=== PATIENT | female | born 1950 | race Caucasian/White ===

== ENCOUNTER → 2017-03-05 | Outpatient (CLI) | payer MEDICARE, OTHER ==
[2017-03-05 08:24] LABS: ABSOLUTE EOSINOPHILS # (AUTO) 0.1 10^3/uL (0.0-0.6); ABSOLUTE LYMPHOCYTES (AUTO) 1.7 10^3/uL (0.5-4.7); ABSOLUTE MONOCYTES (AUTO) 0.7 10^3/uL (0.1-1.4); ABSOLUTE NEUT (AUTO) 4.8 10^3/uL (1.7-8.2); BASOPHILS % (AUTO) 0.6 % (0-2); EOSINOPHILS % (AUTO) 1.9 % (0-6); HEMATOCRIT 36.5 % (36.0-47.0); HEMOGLOBIN 12.3 g/dL (12.0-15.5); HGB HCT DIFFERENCE 0.4; LYMPHOCYTES % (AUTO) 23.6 % (13-45); MEAN CORPUSCULAR HEMOGLOBIN 31.3 pg (27.0-33.4); MEAN CORPUSCULAR HGB CONC 33.8 g/dL (32.0-36.0); MEAN CORPUSCULAR VOLUME 93 fl (80-97); MONOCYTES % (AUTO) 9.4 % (3-13); RED BLOOD COUNT 3.94 10^6/uL (3.72-5.28); RED CELL DISTRIBUTION WIDTH 13.5 % (11.5-14.0); SEGMENTED NEUTROPHILS % (AUTO) 64.5 % (42-78); WHITE BLOOD COUNT 7.4 10^3/uL (4.0-10.5)
[2017-03-05 08:48] LABS: ALANINE AMINOTRANSFERASE 20 U/L (9-52); ALBUMIN 4.5 g/dL (3.5-5.0); ALKALINE PHOSPHATASE 70 U/L (38-126); ANION GAP 12 (5-19); ASPARTATE AMINO TRANSFERASE 17 U/L (14-36); BILIRUBIN,DIRECT 0.3 mg/dL (0.0-0.4); BILIRUBIN,TOTAL 0.9 mg/dL (0.2-1.3); BLOOD UREA NITROGEN 12 mg/dL (7-20); CALCIUM 10.1 mg/dL (8.4-10.2); CARBON DIOXIDE 26 mmol/L (22-30); CHLORIDE 107 mmol/L (98-107); CREATININE RESULT 0.95 mg/dL (0.52-1.25); GLUCOSE 101 mg/dL (75-110); LITHIUM 0.9 mEq/L (0.6-1.2); POTASSIUM 4.2 mmol/L (3.6-5.0); SODIUM 145.1 mmol/L (137-145); TOTAL PROTEIN 7.1 g/dL (6.3-8.2)
[2017-03-05 09:25] LABS: THYROID STIMULATING HORMONE 5.74 uIU/mL (0.47-4.68)
== END ==
LOC: OD 07:19
PROVIDERS: ATTEND Physician Assistant
DX: F31.73 Bipolar disorder, in partial remission, most recent episode manic (principal); Z79.899 Other long term (current) drug therapy
CPT/HCPCS: 36415; 80053; 80178; 84439; 84443; 85025

== ENCOUNTER 2018-01-29 16:09 | Emergency (ER) | payer MEDICARE, OTHER ==
--- NOTE | 2018-01-29 16:39 | ER Document Report ---
HPI - HPI Pain Level: 1 Notes: Patient is a 67-year-old female with a previous history of T&A who presents to the ED complaining of sensation of foreign body to the right side of her throat 4 days after eating chicken. Patient is not aware of any obvious bone or sharp object that she swallowed. Patient states that she has no pain associated , but does have the sensation of foreign body. Patient states that she is still eating soft foods, but has been concerned about eating hard solids. Patient states that she is still drinking without any difficulties. She is urinating normally and having normal bowel movements. Patient states that she has otherwise felt well. She has no other significant past medical history aside from bipolar. Denies any drug allergies. Denies any headache, fever, head injury, neck pain, drooling, hoarseness, trouble swallowing, URI, sore throat, chest pain, palpitations, syncope, cough, shortness of breath, wheeze, dyspnea, abdominal pain, nausea/vomiting/diarrhea, urinary retention, dysuria, hematuria, numbness/tingling, or rash. - ROS Systems Reviewed and Negative: Yes All other systems reviewed and negative - REPRODUCTIVE Reproductive: DENIES: : Past Medical History - Social History Smoking Status: Never Smoker Family History: Reviewed & Not Pertinent Psychiatric Medical History: Reports: Hx Bipolar Disorder - Immunizations Hx Diphtheria, Pertussis, Tetanus Vaccination: Yes Vertical Provider Document - CONSTITUTIONAL Agree With Documented VS: Yes Notes: PHYSICAL EXAMINATION: GENERAL: Well-appearing, well-nourished and in no acute distress. A&Ox4. Answers questions appropriately. Moves comfortably w/o notable distress HEAD: Atraumatic, normocephalic. EYES: Pupils equal round and reactive to light, extraocular movements intact, sclera anicteric, conjunctiva are normal. ENT: EAC clear b/l. TM's intact b/l without erythema, fluid, or perforation. Nares patent and with clear discharge. oropharynx w/o erythema without exudates. Tonsils absent. No palatine shift. Uvula midline. No tongue protrusion. No drooling, hoarseness, or airway compromise. Moist mucous membranes. No sinus tenderness. NECK: Normal range of motion, supple without lymphadenopathy. No rigidity/ meningismus. LUNGS: Breath sounds clear to auscultation bilaterally and equal. No wheezes rales or rhonchi. No retractions HEART: Regular rate and rhythm without murmurs, rubs, gallops. ABDOMEN: Soft, nontender, nondistended abdomen. No guarding, no rebound. No masses appreciated. Normal bowel sounds present. No CVA tenderness bilaterally. NEUROLOGICAL: Normal speech, normal gait. Normal sensory, motor exams PSYCH: Normal mood, normal affect. SKIN: Warm, Dry, normal turgor, no rashes or lesions noted. - INFECTION CONTROL TRAVEL OUTSIDE OF THE [place] IN LAST 30 DAYS: No Course - Re-evaluation Re-evalutation: 01/29/18 16:[address] Morse. We will obtain a CT scan and CXR at this time to further investigate. Pt is able to swallow and tolerate PO otherwise w/o any difficulties. 01/29/18 18:[address] soft tissue neck w/o: IMPRESSION: Tiny radiopaque density on the right as noted above in the soft tissues adjacent to the superior portion of the thyroid cartilage most likely representing a vascular calcification however this could conceivably represent a radiopaque foreign body. No other evidence for radiopaque foreign body is seen. Other findings as noted above I did call and speak with Dr. Martinez who will come evalute the patient as he is currently in-house. Pt is in agreement at this time with plan. 01/29/18 18:32 Will move patient to bed 19 for endoscopic procedure by Dr. Martinez. 01/29/18 19:41 Patient is an afebrile, well-hydrated, 67-year-old female who presents to the ED with a possible "tiny" radiopaque density on the right side of the neck superior portion of the thyroid cartilage versus vascular calcification. There was no foreign body on endoscopy, but Dr. Martinez states that there was inflamed tissue. Vitals are acceptable. PE is otherwise unremarkable. Patient is able to tolerate p.o. without any difficulties. Low suspicion for any meningitis, sepsis, peritonsillar/pharyngeal abscess, airway/respiratory compromise, Mo' s, retained foreign body, or other emergent systemic condition at this time. Patient is aware this condition can change from initial presentation and she needs to monitor symptoms closely. Conservative measures otherwise for symptoms. Recheck with your PCM in 3-5 days. Return to the ED with any worsening/concerning symptoms otherwise as reviewed in discharge. Patient is in agreement. Pt to be discharged in another 27minutes per Dr. Martinez w/o restrictions. - Vital Signs Vital signs: Temp Pulse Resp BP Pulse Ox 99.3 F 73 18 166/77 H 100 01/29/18 16:14 01/29/18 16:14 01/29/18 16:14 01/29/18 16:14 01/29/18 16:14 Discharge - Discharge Clinical Impression: Sensation of foreign body in esophagus Condition: Stable Disposition: HOME, SELF-CARE Additional Instructions: Maintain adequate fluid and food intake tylenol if needed Monitor for any worsening symptoms Recheck with your PCM in 3-5 days Return to the ED with any worsening symptoms and/or development of fever, headache, sore throat, trouble swallowing, drooling, hoarseness, chest pain, palpitations, syncope, wheezing, shortness of breath, trouble breathing, abdominal pain, n/v/d, blood in stool/urine, weakness, or other worsening symptoms that are concerning to you. Forms: Elevated Blood Pressure Referrals: DEVORA MARTINEZ MD [ACTIVE STAFF] - Follow up as needed
--- NOTE | 2018-01-29 17:08 | RADIOLOGY REPORT (SQ) ---
EXAM DESCRIPTION: CHEST PA/LAT COMPLETED DATE/TIME: 01/29/2018 5:01 pm REASON FOR STUDY: sensation of foreign body, neck COMPARISON: None. EXAM PARAMETERS: NUMBER OF VIEWS: two views TECHNIQUE: Digital Frontal and Lateral radiographic views of the chest acquired. RADIATION DOSE: NA LIMITATIONS: none FINDINGS: LUNGS AND PLEURA: No opacities, masses or pneumothorax. No pleural effusion. MEDIASTINUM AND HILAR STRUCTURES: No masses or contour abnormalities. HEART AND VASCULAR STRUCTURES: Heart normal size. No evidence for failure. BONES: No acute findings. HARDWARE: None in the chest. OTHER: No other significant finding. IMPRESSION: NO SIGNIFICANT RADIOGRAPHIC FINDING IN THE CHEST. TECHNICAL DOCUMENTATION: JOB ID: [id number] [employer]- All Rights Reserved Reading location - IP/workstation name: [email or web address]
--- NOTE | 2018-01-29 17:27 | RADIOLOGY REPORT (SQ) ---
EXAM DESCRIPTION: CT SOFT TISSUE NECK WITHOUT COMPLETED DATE/TIME: 01/29/2018 5:00 pm REASON FOR STUDY: sensation of foreign body, right side COMPARISON: None. TECHNIQUE: Noncontrast scanning from skull base through lung apices with review of bone, soft tissue and lung windows. Reconstructed coronal and sagittal MPR images reviewed. All images stored on PAC S. All CT scanners at this facility use dose modulation, iterative reconstruction, and/or weight based d osing when appropriate to reduce radiation dose to as low as reasonably achievable (ALARA). [facility]: Dose Right [facility]: CareDose [facility]: Dose Right [facility]: Teradose 4D [facility]: [employer] RADIATION DOSE: CT Rad equipment meets quality standard of care and radiation dose reduction techniq ues were employed. CTDIvol: 9.7 mGy. DLP: 334 mGy-cm. mGy. LIMITATIONS: Study is limited somewhat due to artifact related to dental hardware. FINDINGS: SKULL BASE: Intact. MAJOR SALIVARY GLANDS: No solid or cystic masses. No inflammatory changes. LYMPHADENOPATHY: No adenopathy. MUCOSAL MASSES OR ASYMMETRY: No mucosal masses or asymmetry. LARYNX/CORDS: No abnormal findings. LUNG APICES: Clear. BONES: Degenerative changes are identified in the cervical spine THYROID: Normal size. No masses. PARANASAL SINUSES: Clear. OTHER: On images number 56 through 58 of the axial images a tiny radiopaque density is identified in the soft tissues adjacent to the superior portion of the thyroid cartilage on the right which most li bladimir represents a vascular calcification however this could conceivably represent a radiopaque foreig n body. IMPRESSION: Tiny radiopaque density on the right as noted above in the soft tissues adjacent to the superior portion of the thyroid cartilage most likely representing a vascular calcification however t his could conceivably represent a radiopaque foreign body. No other evidence for radiopaque foreign body is seen. Other findings as noted above TECHNICAL DOCUMENTATION: JOB ID: [id number] Quality ID # [id number]: Final reports with documentation of one or more dose reduction techniques (e.g., Au tomated exposure control, adjustment of the mA and/or kV according to patient size, use of iterative reconstruction technique) 2010 [employer]- All Rights Reserved Reading location - IP/workstation name: [email or web address]
[2018-01-29] MEDS ORDERED: ONDANSETRON HCL INJ/PF 4 MG/2 ML SDV ONE (19:02)
[2018-01-29] MEDS ORDERED: DIPHENHYDRAMINE HCL 50 MG/ML VIAL ONE (19:02)
[2018-01-29] MEDS ORDERED: NALOXONE HCL INJ/PF 0.4 MG/1 ML SDV ONE (19:02)
[2018-01-29] MEDS ORDERED: FENTANYL CITRATE INJ/PF 100 MCG/2 ML AMPUL ONE (19:03)
[2018-01-29] MEDS ORDERED: FLUMAZENIL INJ 0.5 MG/5 ML VIAL ONE (19:03)
[2018-01-29] MEDS ORDERED: MIDAZOLAM 2 MG/2 ML INJ ONE (19:03)
[2018-01-29] MEDS ORDERED: EPINEPHRINE INJ 1 MG/10 ML DISP.SYRIN ONE (19:03)
[2018-01-29] MEDS ORDERED: GLUCAGON,HUMAN RECOMB 1 MG INJ ONE (19:04)
[2018-01-29] MEDS: MIDAZOLAM 2 MG/2 ML INJ ONE ×2 (19:25→19:30)
--- NOTE | 2018-01-29 19:46 | PDOC CONSULTATION ---
Consultation Consult Date: 01/29/18 Attending physician:: DEVORA MARTINEZ Consult reason:: Possible foreign body sensation , abnormal CT scan History of Present Illness History of Present Illness: DANDY RODRÍGUEZ is a 67 year old female patient presented to the ED was eating some chicken several days ago and had possible impaction she tried to directly remove the piece of chicken and apparently was able to retrieve however she denies eating or swallowing any bones she still appears to have a foreign body sensation on the right side of her throat she was able to tolerate her secretions she is able to converse in full sentences patient had a CT scan done in the area. Radiology confirms a radioopaque substance in the area, ? possible vascular calcification but they would not rule out presence of a retained foreign body in the right vallaculae she is willing to have an EGD done Past Medical History Psychiatric Medical History: Reports: Bipolar Disorder Social History Smoking Status: Never Smoker Family History Family History: Reviewed & Not Pertinent Parental Family History Reviewed: Yes Children Family History Reviewed: Unknown Sibling(s) Family History Reviewed.: Unknown Medication/Allergy Home Medications: [place] Carbonate 150 mg PO DAILY 06/27/12 Allergies/Adverse Reactions: No Known Allergies Allergy (Unverified 06/27/12 08:26) Review of Systems Constitutional: ABSENT: fever(s), headache(s) Eyes: ABSENT: visual disturbances Ears: ABSENT: hearing changes Nose, Mouth, and Throat: PRESENT: sore throat. ABSENT: mouth pain Cardiovascular: ABSENT: chest pain, edema, orthropnea, palpitations Respiratory: ABSENT: dyspnea, hemoptysis Gastrointestinal: ABSENT: diarrhea, dysphagia, melena Genitourinary: ABSENT: dysuria, hematuria Musculoskeletal: ABSENT: deformity, joint swelling Integumentary: ABSENT: pruritus Neurological: ABSENT: syncope, tingling, tremor(s), vertigo Endocrine: ABSENT: polydipsia, polyphagia, polyuria Hematologic/Lymphatic: ABSENT: easy bruising Physical Exam Vital Signs: Temp Pulse Resp BP Pulse Ox 99.3 F 73 18 166/77 H 100 01/29/18 16:14 01/29/18 16:14 01/29/18 16:14 01/29/18 16:14 01/29/18 16:14 Intake & Output 01/28/18 01/29/18 01/30/18 06:59 06:59 06:59 Weight 74 kg General appearance: PRESENT: well-developed, well-nourished Head exam: PRESENT: atraumatic, normocephalic Eye exam: PRESENT: EOMI, PERRLA. ABSENT: nystagmus, periorbital swelling, scleral icterus Mouth exam: PRESENT: moist, neck supple Throat exam: ABSENT: tonsillar exudate, tonsillogmegaly Neck exam: ABSENT: meningismus, tenderness, thyromegaly Respiratory exam: PRESENT: tachypnea. ABSENT: symmetrical, unlabored, wheezes Cardiovascular exam: PRESENT: RRR, +S1, +S2 GI/Abdominal exam: PRESENT: soft. ABSENT: rebound, rigid, tenderness Extremities exam: ABSENT: joint swelling Musculoskeletal exam: PRESENT: full ROM Neurological exam: PRESENT: alert, awake, oriented to time, oriented to situation Psychiatric exam: PRESENT: anxious. ABSENT: agitated Skin exam: PRESENT: normal color. ABSENT: mottled, pallor, urticaria, vesicles Results Impressions: Soft Tissue Neck CT 01/29/18 16:35 IMPRESSION: Tiny radiopaque density on the right as noted above in the soft tissues adjacent to the superior portion of the thyroid cartilage most likely representing a vascular calcification however this could conceivably represent a radiopaque foreign body. No other evidence for radiopaque foreign body is seen. Other findings as noted above Chest X-Ray 01/29/18 16:36 IMPRESSION: NO SIGNIFICANT RADIOGRAPHIC FINDING IN THE CHEST. Assessment & Plan - Diagnosis (1) Foreign body in esophagus Qualifiers: Encounter type: initial encounter Qualified Code(s): T18.108A - Unspecified foreign body in esophagus causing other injury, initial encounter Plan: based on radiology findings, would be prudent to make sure no retained foreign body she will need an EGD she is very anxious about the whole procedure explained the risks, benefits and alternatives of the procedure further recommendations to follow - Time Time Spent: 50 to 70 Minutes
--- NOTE | 2018-01-29 19:49 | Operative Report ---
Operative Report DATE OF SURGERY: 01/29/18 Operative Report: The risks benefits and alternatives of the procedure explained to the patient in detail and informed consent is obtained.A GIF Olympus video scope was inserted into the patient's mouth and hypopharynx, the esophagus is identified intubated and insufflated, the scope was then advanced through the esophagus stomach and duodenum ,retroflexion maneuver is done, the esophagus stomach and first and second portions of the duodenum examined PREOPERATIVE DIAGNOSIS: Possible foreign body POSTOPERATIVE DIAGNOSIS: Erythema, inflammation noted on the right valleculae region. No foreign body noted. Esophagus normal. Schatzki's ring which is broken likely the cause of her initial dysphagia. Gastritis status post biopsy rule out Helicobacter pylori. Duodenitis OPERATION: EGD with biopsy SURGEON: DEVORA MARTINEZ ANESTHESIA: Moderate Sedation - 4 mg of Versed, 75 mcg of fentanyl. Conscious sedation monitoring time 30 minutes. TISSUE REMOVED OR ALTERED: As noted above. COMPLICATIONS: None. ESTIMATED BLOOD LOSS: None. INTRAOPERATIVE FINDINGS: As noted above. PROCEDURE: Patient tolerated procedure well. No immediate postprocedure complications are noted. Patient can be discharged in good condition. Discharge date 01/29/2018. Discharge diet: Regular. Discharge activity: Regular. 2-3 week follow-up to discuss findings. Patient is instructed to call the office or proceed to the emergency room should there be any further problems or questions. We will wait on pathology.
[2018-01-29 20:37] VITALS: BP 150/76
== END 2018-01-29 20:37 | disposition home or self-care (01) ==
LOC: ER 16:09
DX: K22.2 Esophageal obstruction (principal); K29.80 Duodenitis without bleeding; K29.70 Gastritis, unspecified, without bleeding
CPT/HCPCS: 99284; 43239; 88305 ×2; 71046; 70490; J2250; J3010; J0171; J1200; J1610; J2310; J2405; J3490

== ENCOUNTER 2018-02-13 22:18 | Inpatient (IN) | payer MEDICARE, OTHER ==
--- NOTE | 2018-02-13 22:52 | ER Document Report ---
ED General - General Chief Complaint: Psych Problem Stated Complaint: ALTERED MENTA L STAT Time Seen by Provider: 02/13/18 22:34 Mode of Arrival: Ambulatory Information source: Patient, Law Enforcement Cannot obtain history due to: Uncooperative Notes: 67-year-old female with a history of bipolar disorder presents in police custody after she called the police because "the squad is coming". Police officers who escorted the patient states they received a call from the patient requesting protection because of the squad was coming. Dr. Staton filled out IVC paperwork which states that "the patient has a history of bipolar disorder with psychosis and is not currently compliant on her medications. She has been displaying paranoid delusions and thoughts of impending doom by body snatchers, there is concerned for self-harm,". 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 . On my exam patient denies any physical complaints. She says she has been compliant with her lithium. She is refusing blood work. She denies fever, headache, chills, nausea, vomiting, chest pain, shortness of breath, abdominal pain, back pain, dysuria, SI/HI, visual and auditory hallucinations. TRAVEL OUTSIDE OF THE [place] IN LAST 30 DAYS: No - HPI Onset: Just prior to arrival Quality of pain: No pain Associated symptoms: None Exacerbated by: Denies Relieved by: Denies Similar symptoms previously: Yes - Related Data Allergies/Adverse Reactions: No Known Allergies Allergy (Unverified 06/27/12 08:26) Past Medical History - General Information source: Patient, [facility] Records - Social History Smoking Status: Former Smoker Frequency of alcohol use: None Drug Abuse: None Lives with: Family Family History: Reviewed & Not Pertinent Patient has suicidal ideation: No Patient has homicidal ideation: No - Medical History Medical History: Other Neurological Medical History: Denies: Hx Seizures Renal/ Medical History: Denies: Hx Peritoneal Dialysis Psychiatric Medical History: Reports: Hx Bipolar Disorder Past Surgical History: Denies: Hx Hysterectomy - Immunizations Hx Diphtheria, Pertussis, Tetanus Vaccination: Yes Review of Systems - Review of Systems Notes: She denies fever, headache, chills, nausea, vomiting, chest pain, shortness of breath, abdominal pain, back pain, dysuria, SI/HI, visual and auditory hallucinations. Physical Exam - Vital signs Interpretation: Normal - Notes Notes: PHYSICAL EXAMINATION: GENERAL: Well-appearing, well-nourished and in no acute distress. HEAD: Atraumatic, normocephalic. EYES: Pupils equal round and reactive to light, extraocular movements intact, conjunctiva are normal. ENT: Nares patent, oropharynx clear without exudates. Moist mucous membranes. NECK: Normal range of motion, supple without lymphadenopathy LUNGS: Breath sounds clear to auscultation bilaterally and equal. No wheezes rales or rhonchi. HEART: Regular rate and rhythm without murmurs ABDOMEN: Soft, nontender, nondistended abdomen. No guarding, no rebound. No masses appreciated. Female : deferred Musculoskeletal: Normal range of motion, no pitting or edema. No cyanosis. NEUROLOGICAL: Cranial nerves grossly intact. Normal speech, normal gait. Normal sensory, motor exams PSYCH: Paranoid, uncooperative. Denies SI/HI. Denies any visual and auditory hallucinations.. SKIN: Warm, Dry, normal turgor, no rashes or lesions noted. Course - Re-evaluation Re-evalutation: Laboratory 02/13/18 02/13/18 02/14/18 23:00 23:00 03:08 WBC 13.2 H RBC 4.12 Hgb 12.6 Hct 37.9 MCV 92 MCH 30.6 MCHC 33.3 RDW 13.0 Plt Count 323 Seg Neutrophils % 79.3 H Lymphocytes % 9.8 L Monocytes % 10.2 Eosinophils % 0.5 Basophils % 0.2 Absolute Neutrophils 10.5 H Absolute Lymphocytes 1.3 Absolute Monocytes 1.4 Absolute Eosinophils 0.1 Absolute Basophils 0.0 Sodium 136.0 L Potassium 3.3 L Chloride 95 L Carbon Dioxide 31 H Anion Gap 10 BUN 16 Creatinine 1.06 Est GFR ( Amer) > 60 Est GFR (Non-Af Amer) 52 L Glucose 98 Calcium 10.7 H Total Bilirubin 0.8 Direct Bilirubin 0.2 Neonat Total Bilirubin Not Reportable Neonat Direct Bilirubin Not Reportable Neonat Indirect Bili Not Reportable AST 68 H ALT 77 H Alkaline Phosphatase 73 Total Protein 6.7 Albumin 4.5 Urine Color YELLOW Urine Appearance CLOUDY Urine pH 6.0 Ur Specific [place] 1.006 Urine Protein NEGATIVE Urine Glucose (UA) NEGATIVE Urine Ketones TRACE H Urine Blood SMALL H Urine Nitrite NEGATIVE Urine Bilirubin NEGATIVE Urine Urobilinogen 2.0 H Ur Leukocyte Esterase LARGE H Urine WBC (Auto) 98 Urine RBC (Auto) 33 Urine Bacteria (Auto) 2+ Squamous Epi Cells Auto 65 U Non-Squamous Epis Auto 2 Amorphous Sediment Auto TRACE Urine Mucus (Auto) FEW Urine Ascorbic Acid NEGATIVE Salicylates < 1.0 L Urine Opiates Screen Urine Methadone Screen Acetaminophen < 10 L Ur Barbiturates Screen Ur Phencyclidine Scrn Ur Amphetamines Screen U Benzodiazepines Scrn [place] 1.5 H Urine Cocaine Screen U Marijuana (THC) Screen 02/14/18 03:08 WBC RBC Hgb Hct MCV MCH MCHC RDW Plt Count Seg Neutrophils % Lymphocytes % Monocytes % Eosinophils % Basophils % Absolute Neutrophils Absolute Lymphocytes Absolute Monocytes Absolute Eosinophils Absolute Basophils Sodium Potassium Chloride Carbon Dioxide Anion Gap BUN Creatinine Est GFR ( Amer) Est GFR (Non-Af Amer) Glucose Calcium Total Bilirubin Direct Bilirubin Neonat Total Bilirubin Neonat Direct Bilirubin Neonat Indirect Bili AST ALT Alkaline Phosphatase Total Protein Albumin Urine Color Urine Appearance Urine pH Ur Specific [place] Urine Protein Urine Glucose (UA) Urine Ketones Urine Blood Urine Nitrite Urine Bilirubin Urine Urobilinogen Ur Leukocyte Esterase Urine WBC (Auto) Urine RBC (Auto) Urine Bacteria (Auto) Squamous Epi Cells Auto U Non-Squamous Epis Auto Amorphous Sediment Auto Urine Mucus (Auto) Urine Ascorbic Acid Salicylates Urine Opiates Screen NEGATIVE Urine Methadone Screen NEGATIVE Acetaminophen Ur Barbiturates Screen NEGATIVE Ur Phencyclidine Scrn NEGATIVE Ur Amphetamines Screen NEGATIVE U Benzodiazepines Scrn NEGATIVE [place] Urine Cocaine Screen NEGATIVE U Marijuana (THC) Screen NEGATIVE 02/13/18 22:59 67-year-old female with a history of bipolar disorder presents in police custody after she called the police because "the squad is coming". Police officers who escorted the patient states they received a call from the patient requesting protection because "the squad was coming". Dr. Staton filled out IVC paperwork which states that "the patient has a history of bipolar disorder with psychosis and is not currently compliant on her medications. She has been displaying paranoid delusions and thoughts of impending doom". Patient uncooperative upon my exam. Occasional recommendations given by Dr. Staton which include lithium 300 mg p.o. twice daily, Haldol 5 mg twice daily IM or p.o., Cogentin 1 mg daily. 02/14/18 06:12 Vital signs stable. Patient has been cooperative since being medicated. [place] level mildly elevated. She was found to have a urinary tract infection. Cipro 500 mg p.o. twice daily was scheduled. Patient also found to have mild hypokalemia. This was replenished with 40 mEq of potassium by mouth. 02/14/18 06:13 - Laboratory Result Diagrams: 02/13/18 23:00 02/13/18 23:00 Laboratory results interpreted by me: 02/13/18 02/13/18 02/14/18 23:00 23:00 03:08 WBC 13.2 H Seg Neutrophils % 79.3 H Lymphocytes % 9.8 L Absolute Neutrophils 10.5 H Sodium 136.0 L Potassium 3.3 L Chloride 95 L Carbon Dioxide 31 H Est GFR (Non-Af Amer) 52 L Calcium 10.7 H AST 68 H ALT 77 H Urine Ketones TRACE H Urine Blood SMALL H Urine Urobilinogen 2.0 H Ur Leukocyte Esterase LARGE H Salicylates < 1.0 L Acetaminophen < 10 L [place] 1.5 H - EKG Interpretation by Me EKG shows normal: Sinus rhythm Discharge - Discharge Clinical Impression: Hypokalemia, Paranoid delusion UTI (urinary tract infection) Qualifiers: Urinary tract infection type: site unspecified Hematuria presence: with hematuria Qualified Code(s): N39.0 - Urinary tract infection, site not specified ; R31.9 - Hematuria, unspecified; R31.9 - Hematuria, unspecified Condition: Good Instructions: Urinary Tract Infection ([facility])
[2018-02-13] MEDS ORDERED: LITHIUM CARBONATE 300 MG CAPSULE PO SCH (23:00)
[2018-02-13] MEDS ORDERED: BENZTROPINE MESYLATE INJ 2 MG/2 ML AMPULE IM SCH (23:00)
[2018-02-13] MEDS: HALOPERIDOL LACTATE INJ 5 MG/1 ML VIAL IM SCH (23:10)
[2018-02-13 23:43] LABS: ABSOLUTE EOSINOPHILS # (AUTO) 0.1 10^3/uL (0.0-0.6); ABSOLUTE LYMPHOCYTES (AUTO) 1.3 10^3/uL (0.5-4.7); ABSOLUTE MONOCYTES (AUTO) 1.4 10^3/uL (0.1-1.4); ABSOLUTE NEUT (AUTO) 10.5 10^3/uL (1.7-8.2); BASOPHILS % (AUTO) 0.2 % (0-2); EOSINOPHILS % (AUTO) 0.5 % (0-6); HEMATOCRIT 37.9 % (36.0-47.0); HEMOGLOBIN 12.6 g/dL (12.0-15.5); LYMPHOCYTES % (AUTO) 9.8 % (13-45); MEAN CORPUSCULAR HEMOGLOBIN 30.6 pg (27.0-33.4); MEAN CORPUSCULAR HGB CONC 33.3 g/dL (32.0-36.0); MEAN CORPUSCULAR VOLUME 92 fl (80-97); MONOCYTES % (AUTO) 10.2 % (3-13); PLATELET COUNT 323 10^3/uL (150-450); RED BLOOD COUNT 4.12 10^6/uL (3.72-5.28); SEGMENTED NEUTROPHILS % (AUTO) 79.3 % (42-78); TOTAL CELLS COUNTED % (AUTO) 100 %; WHITE BLOOD COUNT 13.2 10^3/uL (4.0-10.5)
[2018-02-13 23:53] LABS: ALANINE AMINOTRANSFERASE 77 U/L (9-52); ALBUMIN 4.5 g/dL (3.5-5.0); ALKALINE PHOSPHATASE 73 U/L (38-126); ANION GAP 10 (5-19); ASPARTATE AMINO TRANSFERASE 68 U/L (14-36); BILIRUBIN,DIRECT 0.2 mg/dL (0.0-0.4); BILIRUBIN,TOTAL 0.8 mg/dL (0.2-1.3); BLOOD UREA NITROGEN 16 mg/dL (7-20); CALCIUM 10.7 mg/dL (8.4-10.2); CARBON DIOXIDE 31 mmol/L (22-30); CHLORIDE 95 mmol/L (98-107); GLUCOSE 98 mg/dL (75-110); LITHIUM 1.5 mEq/L (0.6-1.2); POTASSIUM 3.3 mmol/L (3.6-5.0); TOTAL PROTEIN 6.7 g/dL (6.3-8.2)
[2018-02-13 23:54] LABS: ACETAMINOPHEN < 10 ug/mL (10-30); SALICYLATE < 1.0 mg/dL (2.0-20.0)
[2018-02-14 04:08] LABS: URINE AMPHETAMINES SCREEN NEGATIVE; URINE BARBITURATES SCREEN NEGATIVE; URINE BENZODIAZEPINES SCREEN NEGATIVE; URINE COCAINE SCREEN NEGATIVE; URINE MARIJUANA (THC) SCREEN NEGATIVE; URINE METHADONE SCREEN NEGATIVE; URINE PHENCYCLIDINE SCREEN NEGATIVE
[2018-02-14 04:31] LABS: AMORPHOUS SEDIMENT,URINE TRACE /HPF; APPEARANCE,URINE CLOUDY; BILIRUBIN,URINE NEGATIVE (NEGATIVE); COLOR,URINE YELLOW; GLUCOSE, URINE NEGATIVE (NEGATIVE); KETONES,URINE TRACE mg/dL (NEGATIVE); LEUKOCYTE ESTERASE,URINE LARGE (NEGATIVE); NITRITE,URINE NEGATIVE (NEGATIVE); PROTEIN,URINE NEGATIVE (NEGATIVE); URINE SPECIFIC GRAVITY 1.006
[2018-02-14] MEDS ORDERED: POTASSIUM CHLORIDE 10 MEQ TABLET.SA PO ONE ×2 (06:11→14:45)
[2018-02-14] MEDS ORDERED: CIPROFLOXACIN HCL 500 MG TABLET PO SCH (10:00)
--- NOTE | 2018-02-14 10:32 | EKG REPORT ---
SEVERITY:- ABNORMAL ECG - SINUS RHYTHM KENIA, CONSIDER BIATRIAL ABNORMALITIES : Confirmed by: Malou Davila 14-Feb-2018 10:31:14
[2018-02-14] MEDS ORDERED: CEFTRIAXONE INJ 1000 MG VIAL IV ONE (12:18)
[2018-02-14] MEDS ORDERED: NORMAL SALINE 250 ML IV ONE (12:21)
--- NOTE | 2018-02-14 12:30 | ER Document Report ---
Doctor's Note Notes: 02/14/18 12:28 Rounds: Chart reviewed and patient interviewed. Patient presented with confusion and paranoid thoughts with a history of bipolar disorder. Resources have primarily been used to assess the patient's mental status, but upon during my morning rounds, I am concerned the patient has a significant UTI, leukocytosis, and hyponatremia and hypokalemia. Additionally, her lithium level is slightly elevated above the upper range of therapeutic at a value of 1.5. Patient appears to be stable with normal vital signs. However, I think that she would benefit by IV fluids and addressing her electrolyte abnormalities as well as IV antibiotics for her urinary tract infection. Spoke with the hospitalist on-call who will admit the patient to a medical floor bed. Cm Avendano MD
[2018-02-14] MEDS ORDERED: ONDANSETRON HCL INJ/PF 4 MG/2 ML SDV IV PRN (12:52)
[2018-02-14] MEDS ORDERED: MAGNESIUM HYDROXIDE SUSP 30 ML UDCUP PO PRN (12:52)
[2018-02-14] MEDS ORDERED: ACETAMINOPHEN 325 MG TABLET PO PRN (12:52)
[2018-02-14] MEDS ORDERED: NORMAL SALINE 1000 ML 1,000 ML IV PRN (13:55)
--- NOTE | 2018-02-14 14:05 | PDOC H&P ---
History of Present Illness Admission Date/PCP: 02/14/18 12:51 Patient complains of: Altered mental status History of Present Illness: DANDY RODRÍGUEZ is a 67-year-old female with a history of bipolar disorder presents in police custody after she called the police because "the squad is coming". Police officers who escorted the patient states they received a call from the patient requesting protection because of the squad was coming. Dr. Staton filled out IVC paperwork which states that "the patient has a history of bipolar disorder with psychosis and is not currently compliant on her medications. She has been displaying paranoid delusions and thoughts of impending doom by body snatchers, there is concerned for self-harm, ". 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 . On my exam patient denies any physical complaints. She says she has been compliant with her lithium. Patient's lab work showed hyponatremia, hypokalemia and uti. Past Medical History Cardiac Medical History: Reports: None Pulmonary Medical History: Reports: None EENT Medical History: Reports: None Neurological Medical History: Reports: None Denies: Seizures Endocrine Medical History: Reports: None Renal/ Medical History: Reports: None Malignancy Medical History: Reports: None GI Medical History: Reports: None Musculoskeltal Medical History: Reports: None Skin Medical History: Reports: None Psychiatric Medical History: Reports: Bipolar Disorder Traumatic Medical History: Reports: None Hematology: Reports: None Infectious Medical History: Reports: None Past Surgical History Past Surgical History: Denies: Hysterectomy Social History Information Source: [facility], [facility] Records Lives with: Family Smoking Status: Former Smoker Frequency of Alcohol Use: Rare Hx Recreational Drug Use: No - Advance Directive Resuscitation Status: Full Code Family History Family History: Hypertension Parental Family History Reviewed: Yes Children Family History Reviewed: Yes Sibling(s) Family History Reviewed.: Yes Medication/Allergy Home Medications: Wren Carbonate [Wren Carbonate ER 450 mg Tablet] 450 mg PO Q12 02/14/18 Allergies/Adverse Reactions: No Known Allergies Allergy (Unverified 06/27/12 08:26) Review of Systems ROS unobtainable: Due to mental status Physical Exam Vital Signs: Temp Pulse Resp BP Pulse Ox 98.0 F 62 16 134/50 H 99 02/14/18 06:51 02/14/18 06:51 02/14/18 06:51 02/14/18 06:51 02/14/18 06:51 General appearance: PRESENT: no acute distress, well-developed, well-nourished Head exam: PRESENT: atraumatic, normocephalic Eye exam: PRESENT: conjunctiva pink, EOMI, PERRLA. ABSENT: scleral icterus Ear exam: PRESENT: normal external ear exam Neck exam: ABSENT: carotid bruit, JVD, lymphadenopathy, thyromegaly Respiratory exam: PRESENT: clear to auscultation mayra. ABSENT: rales, rhonchi, wheezes Cardiovascular exam: PRESENT: RRR. ABSENT: diastolic murmur, rubs, systolic murmur Pulses: PRESENT: normal dorsalis pedis pul Vascular exam: PRESENT: normal capillary refill GI/Abdominal exam: PRESENT: normal bowel sounds, soft. ABSENT: distended, guarding, mass, organolmegaly, rebound, tenderness Rectal exam: PRESENT: deferred Extremities exam: PRESENT: full ROM. ABSENT: calf tenderness, clubbing, pedal edema Neurological exam: PRESENT: alert, altered, CN II-XII grossly intact Psychiatric exam: PRESENT: agitated, anxious Skin exam: PRESENT: dry, intact, warm. ABSENT: cyanosis, rash Assessment & Plan - Diagnosis (1) UTI (urinary tract infection) Qualifiers: Urinary tract infection type: site unspecified Hematuria presence: with hematuria Qualified Code(s): N39.0 - Urinary tract infection, site not specified; R31.9 - Hematuria, unspecified; R31.9 - Hematuria, unspecified Plan: Will continue IV ceftriazone pending urine culture (2) Hyponatremia Is this a current diagnosis for this admission?: Yes Plan: Will hydrate with IV normal saline (3) Hypokalemia Is this a current diagnosis for this admission?: Yes Plan: Replete and monitor (4) Paranoid delusion Is this a current diagnosis for this admission?: Yes Plan: Wren level is supratherapeutic will monitor
[2018-02-14] MEDS ORDERED: ENOXAPARIN SODIUM INJ 40 MG/0.4 ML DISP.SYRIN SUBCUT ONE (14:30)
[2018-02-14] MEDS ORDERED: POTASSIUM CHLORIDE 20 MEQ/15 ML UDCUP PO ONE (15:30)
[2018-02-14] MEDS: HALOPERIDOL LACTATE INJ 5 MG/1 ML VIAL IM SCH (18:22)
[2018-02-14] MEDS ORDERED: LORAZEPAM INJ 2 MG/1 ML VIAL ONE (20:13)
[2018-02-14] MEDS ORDERED: LORAZEPAM INJ 2 MG/1 ML VIAL IV ONE (20:30)
[2018-02-15 05:29] LABS: HEMATOCRIT 33.5 % (36.0-47.0); HEMOGLOBIN 11.1 g/dL (12.0-15.5); MEAN CORPUSCULAR HEMOGLOBIN 30.9 pg (27.0-33.4); MEAN CORPUSCULAR HGB CONC 33.2 g/dL (32.0-36.0); MEAN CORPUSCULAR VOLUME 93 fl (80-97); PLATELET COUNT 272 10^3/uL (150-450); RED CELL DISTRIBUTION WIDTH 13.1 % (11.5-14.0); WHITE BLOOD COUNT 9.8 10^3/uL (4.0-10.5)
[2018-02-15 05:57] LABS: ANION GAP 5 (5-19); BLOOD UREA NITROGEN 8 mg/dL (7-20); CARBON DIOXIDE 29 mmol/L (22-30); CHLORIDE 107 mmol/L (98-107); GLUCOSE 96 mg/dL (75-110); SODIUM 141.1 mmol/L (137-145)
[2018-02-15 06:01] LABS: POTASSIUM 2.9 mmol/L (3.6-5.0)
[2018-02-15] MEDS ORDERED: POTASSIUM CHLORIDE 20 MEQ/15 ML UDCUP PO ONE (08:00)
[2018-02-15] MEDS: POTASSIUM CHLORIDE 20 MEQ/15 ML UDCUP PO SCH ×2 (09:19→15:28)
[2018-02-15] MEDS ORDERED: CEFTRIAXONE 1 GM/D5W RTU 1 GM/50 ML RTUPB IV SCH (10:00)
[2018-02-15] MEDS: ENOXAPARIN SODIUM INJ 40 MG/0.4 ML DISP.SYRIN SUBCUT SCH (11:34)
[2018-02-15] MEDS: HALOPERIDOL LACTATE INJ 5 MG/1 ML VIAL IM SCH ×2 (11:35→18:29)
[2018-02-15] MEDS: CEFTRIAXONE SODIUM 1,000 MG in NORMAL SALINE 100 ML IV SCH (11:35)
[2018-02-15] MEDS ORDERED: BENZTROPINE MESYLATE INJ 2 MG/2 ML AMPULE IM ONE (12:00)
--- NOTE | 2018-02-15 13:22 | PDOC PROGRESS REPORT ---
Subjective Progress Note for:: 02/15/18 Subjective:: DANDY RODRÍGUEZ is a 67-year-old female with a history of bipolar disorder presents in police custody after she called the police because "the squad is coming". Police officers who escorted the patient states they received a call from the patient requesting protection because of the squad was coming. Dr. Staton filled out IVC paperwork which states that "the patient has a history of bipolar disorder with psychosis and is not currently compliant on her medications. She has been displaying paranoid delusions and thoughts of impending doom by body snatchers, there is concerned for self-harm, ". February 15 No complaints. No problems overnight. Reason For Visit: ALTERED MENTAL STATUS UTI Physical Exam Vital Signs: Temp Pulse Resp BP Pulse Ox 98.0 F 67 17 148/55 H 100 02/15/18 12:08 02/15/18 12:08 02/15/18 12:08 02/15/18 12:08 02/15/18 12:08 Intake & Output 02/14/18 02/15/18 02/16/18 06:59 06:59 06:59 Intake Total 1890 Output Total 950 Balance 940 Weight 60.4 kg General appearance: PRESENT: no acute distress, well-developed, well-nourished Head exam: PRESENT: atraumatic, normocephalic Eye exam: PRESENT: EOMI, PERRLA Neck exam: ABSENT: carotid bruit, JVD, lymphadenopathy, thyromegaly Respiratory exam: PRESENT: clear to auscultation mayra. ABSENT: rales, rhonchi, wheezes Cardiovascular exam: PRESENT: RRR. ABSENT: diastolic murmur, rubs, systolic murmur GI/Abdominal exam: PRESENT: normal bowel sounds, soft. ABSENT: distended, guarding, mass, organolmegaly, rebound, tenderness Musculoskeletal exam: PRESENT: ambulatory Neurological exam: PRESENT: alert, awake, oriented to person, oriented to place , oriented to time, oriented to situation, CN II-XII grossly intact. ABSENT: motor sensory deficit Psychiatric exam: PRESENT: appropriate affect, normal mood. ABSENT: homicidal ideation, suicidal ideation Focused psych exam: PRESENT: delusional Results Laboratory Results: 02/15/18 04:52 02/15/18 04:52 02/15/18 02/15/18 04:52 04:52 WBC 9.8 RBC 3.60 L Hgb 11.1 L Hct 33.5 L MCV 93 MCH 30.9 MCHC 33.2 RDW 13.1 Plt Count 272 Sodium 141.1 Potassium 2.9 L* Chloride 107 Carbon Dioxide 29 Anion Gap 5 BUN 8 Creatinine 0.76 Est GFR ( Amer) > 60 Est GFR (Non-Af Amer) > 60 Glucose 96 Calcium 9.0 Assessment & Plan - Diagnosis (1) Paranoid delusion Is this a current diagnosis for this admission?: Yes Plan: Continue involuntary commitment. Awaiting transfer to psychiatric facility. (2) Hypokalemia Is this a current diagnosis for this admission?: Yes Plan: Replace as needed. Check magnesium. (3) Hyponatremia Is this a current diagnosis for this admission?: Yes (4) UTI (urinary tract infection) Qualifiers: Urinary tract infection type: site unspecified Hematuria presence: with hematuria Qualified Code(s): N39.0 - Urinary tract infection, site not specified; R31.9 - Hematuria, unspecified; R31.9 - Hematuria, unspecified Is this a current diagnosis for this admission?: Yes Plan: Day 2 ceftriaxone. Urine culture is growing lactobacillus, but I will continue the ceftriaxone for another day. - Time Time Spent with patient: 15-24 minutes Medications reviewed and adjusted accordingly: Yes Anticipated discharge: Other - Inpatient psychiatry - Inpatient Certification Based on my medical assessment, after consideration of the patient's comorbidities, presenting symptoms, or acuity I expect that the services needed warrant INPATIENT care.: Yes I certify that my determination is in accordance with my understanding of Medicare's requirements for reasonable and necessary INPATIENT services [42 CFR 412.3e].: Yes Medical Necessity: Need Close Monitoring Due to Risk of Patient Decompensation
--- NOTE | 2018-02-16 05:26 | PSYCHOLOGICAL NOTE ---
Psych Note - Psych Note Psych Note: Reason for consult: Psychosis, IVC Patient presents to [facility] with a history of bipolar disorder presents in police custody after she called the police because "the squad is coming". Police officers who escorted the patient states they received a call from the patient requesting protection because of the squad was coming. Family friend came to [facility] and disclosed to attending nurse that he found the patient's medication bottle of lithium that is full indicating the patient has not been taking her medication since September. medications recommendations per [facility]'s contracted psychiatrist, Dr. Jay Jay MD are as follows 1. lithium 300 mg twice daily for mood stabilization 2. Haldol 5 mg twice daily for psychosis 3. Cogentin 1 mg daily to prevent side effects from the haldol Diagnosis 296.44 (F31.2) Bipolar 1 disorder, current episode manic with psychotic features. Patient was put on IVC paperwork; she is currently presenting behaviour indicating she is responding to internal stimuli with paranoid delusions. Patient is unable to engage in evaluation. Patient is diagnosed Bipolar 1 with psychotic features and is known to be noncompliant on her medications. Assigned physician reports patient has a UTI and will be admitted to the floor. Patient will be re-evaluated. Dr. Staton was consulted on the care and management of this patient; attending physician is in agreement with recommendations and disposition.
--- NOTE | 2018-02-16 05:39 | PSYCHOLOGICAL NOTE ---
Psych Note - Psych Note Psych Note: Reason for consult: Psychosis, IVC Patient presents to [facility] with a history of bipolar disorder presents in police custody after she called the police because "the squad is coming". Police officers who escorted the patient states they received a call from the patient requesting protection because of the squad was coming. Conducted check in with patient Patient disclosed she is feeling "terrible." She disclosed that she is the primary caregiver of her 88-year-old mother. "I guess I was delusional or something." She reports that she wants to ensure her mom is all right. She continued to disclose she has siblings who she thought was caring for her mother while she was in the hospital but was just informed that she is by herself. She is requesting to call "bill to check on mom." Clinician notes patient's mother is not alone and is being properly cared for currently. Patient disclosed that she cannot even call 911 because they will not go out to the house anymore because she is called so many times. She reports that she has been off her medication for 3 months but "5 days ago I tried taking my meds but it was too late." Patient became tearful and difficult to understand between mumbling clinician hear "I want mom...I'm sorry mom." Clinician notes throughout the entire evaluation, the patient was sitting up in her bed with her eyes closed talking with clinician. medications recommendations per [facility]'s contracted psychiatrist, Dr. Jay Jay MD are as follows 1. lithium 300 mg twice daily for mood stabilization 2. Haldol 5 mg twice daily for psychosis 3. Cogentin 1 mg daily to prevent side effects from the haldol Diagnosis 296.44 (F31.2) Bipolar 1 disorder, current episode manic with psychotic features. Patient is recommended to continue under IVC. Patient's presentation has greatly improved from yesterday;however, her ability to stay focused on the conversational topic deteriorated the longer she had to speak. Patient refused to make eye contact throughout the entire evaluation, sitting up and talking with her eyes closed. Patient is not verbalizing paranoid delusions of squads or body snatchers, she is very concerned over her mother's care. After being reassured on multiple occasions that her mother is safe and being cared for, the patient was unable to process this information. Dr. Staton was consulted on the care and management of this patient; attending physician is in agreement with recommendations and disposition.
[2018-02-16 05:53] LABS: ANION GAP 5 (5-19); BLOOD UREA NITROGEN 4 mg/dL (7-20); CALCIUM 9.5 mg/dL (8.4-10.2); CARBON DIOXIDE 26 mmol/L (22-30); CHLORIDE 111 mmol/L (98-107); GLUCOSE 103 mg/dL (75-110); SODIUM 142.4 mmol/L (137-145)
[2018-02-16 06:05] LABS: POTASSIUM 4.3 mmol/L (3.6-5.0)
[2018-02-16] MEDS: ENOXAPARIN SODIUM INJ 40 MG/0.4 ML DISP.SYRIN SUBCUT SCH (09:07)
[2018-02-16] MEDS: BENZTROPINE MESYLATE INJ 2 MG/2 ML AMPULE IM SCH (09:08)
[2018-02-16] MEDS: HALOPERIDOL LACTATE INJ 5 MG/1 ML VIAL IM SCH (09:08)
[2018-02-16] MEDS: CEFTRIAXONE SODIUM 1,000 MG in NORMAL SALINE 100 ML IV SCH (09:08)
--- NOTE | 2018-02-16 10:37 | PSYCHOLOGICAL NOTE ---
Psych Note - Psych Note Psych Note: Reason for consult: Patient's delusions/psychosis Eval: 0942 Final Dispo Contact Permissions: Florecita Dupont [phone] Patient is a 67-year-old female. During the beginning of the assessment patient reported she was not able to stay awake. Patient reported (while her eyes were closed) she stayed up throughout the night and was unable to sleep. Patient reports she had "concerns". Patient reported she was mainly concerned with her mother and stated she needed to hurry up and get out of here so she can take care of her mom. Patient reports right now her knees is from out of state and is currently taking care of her mom. Patient reports she has a diagnosis of bipolar disorder. Patient reports she receives medication for her bipolar disorder by Lorena Ko at [facility]. Patient reports she manages her bipolar primarily with medications. Patient reports she is currently not in outpatient therapy. Patient reports she received therapy but cannot recall how long ago it was. Patient reports she has been to inpatient psychiatric hospitals multiple times [facility] but is not sure exactly how many times. Patient reports on a scale of 1 through 10 with 10 being things are better she is currently at a 1. Patient reports it is due to not being with her mother. Patient reports since her niece lives "[id number]" she needs to get home to her mother. Patient reports she called her home twice this morning and was not able to get in touch with them. Patient reports she gives consent to speak with Florecita Dupont her niece for collateral information. Patient reports she is upset because she wants to be able to shower, brush her teeth, and change her bed. Patient reports she remembers telling her nurse about the " squad ", but states it was unfair of her to ask because then she "put that in" her head. Patient reports she answered yes but should have answered no because now she thinks she has to stay because she admitted to thinking about the squad. Patient reports that she started thinking about the squad 5 days ago, stating that they come into your home and "do you in". Patient reports she can live with those thoughts and although she believes there is a squad she will be fine as long as she is able to take care of her mother. Clinician observed patient continuously asked throughout assessment about changing her beds, brushing her teeth, and was irritable/angry with clinician. Although, her eyes remained closed a majority of the time. Collateral Information: Florecita Dupont ( Patient's niece ) [phone] Cell: [phone] can leave voicemail Patient's niece reports patient was diagnosed with bipolar disorder years ago. Patient's niece reports her and the family believes that she has actually schizophrenia but was never diagnosed with that. Patient's niece reports patient has been this way since childhood. Patient reports when patient is on her medication she is a happy person, positive, outgoing, extrovert, loving the people, loves experiencing new things, will do things for people, and has a big heart. Patient's niece reports she noticed patient is not even close to herself right now. Patient's niece reports patient is a "typical bipolar person who believes she does not need meds". Patient reports that her entire family lives in [place] and she is currently here to help take care of patient's 88-year-old mother. Patient's niece reports that she will have to go back to [place] and is concerned for the safety of patient and patient's mother. Patient's niece reports the entire family wants him to move back to [place] because they are concerned for the care of the 88-year-old mother. Patient's niece reports a couple years ago patient thought the maldonado who was working on the [employer] was communicating through radio waves and chased him in her car. Patient's niece reports the police had to put nails up to pop retires to stop the Patrick. Patient's niece reports she was doing fine up until October when she started to notice a change in her voice over the phone and the things she was talking about. Patient's niece reports prior to coming to the hospital this time patient was telling her over the phone that black things are coming out of the vents to get her. Patient's niece reports currently she believes her aunt is seeing and hearing things. Patient's niece reports when patient called from the hospital she was still fixated on the "black things coming out of the vents". Patient's niece reports that she believes patient has obsessive- compulsive disorder because it runs in the family and she becomes fixated on things. Patient's niece reports she becomes so fixated that she "cannot let it go" on things that do not really matter. Patient's niece gave an example of a time where patient thought she had a piece of chicken in the back of her throat and continuously pick at it until it became inflamed. Patient's niece reports when patient becomes fixated, she will put herself in harmful situations or self harm ( example: picking in her throat with fingernails). Patient's niece reports patient recently became fixated on thinking she stole water and became very upset and needed to find the receipt, and fixated on this situation for quite some time. Patient's niece reports that over the last 20 years she has gotten worse when off meds. Patient's niece reports she wants something long- term in place to prevent her aunt and the aunt's mother from any harm. Patient' s niece stated that she can be contacted on her cell phone and to leave a voicemail and she will be able to call back.Patient's niece reports she feels a fci plan needs to happen because of seeing patient get progressively worse , where she can't normally function and take care of herself, let alone take care of others. Addressing comment made by bonita about the safety of the older adult in the home : Mental health has already addressed this concern, and made an Adult Protective Services report regarding the 88 year old mother under the direct care and supervision of patient. Additional Collateral Information: Patient's nurse Per nurse report: Patient's attending nurse Georgie reports she asked patient this morning if patient was still thinking about the squad and patient replied "yes". Patient's nurse reports patient was concerned about her mother. Patient's nurse reports patient is demanding and and had to be re-directed multiple times, and if patient was not redirected the nurse would have to be in her room throughout the entire day because she wants things done immediately and repeats herself. Clinician observed patient is currently becoming fixated on objectives, and requires redirection. Medications recommendations per [facility]'s contracted psychiatrist, Dr. Jay Jay MD are as follows 1. lithium 300 mg at night 2. Discontinue Haldol 3. Begin Zyprexa 2.5 mg twice per day Diagnosis 296.44 (F31.2) Bipolar 1 disorder, current episode manic with psychotic features. Impression/Plan: Recommendation to continue involuntary commitment due to patient meeting [facility] GS 122C. Patient is still experiencing psychosis and responding to internal stimuli. Clinician observed patient is lethargic, speaking with her eyes closed, and is irritable.Clinician observed patient endorses delusions ( squad "doing you in"). Per collateral information patient is contacting family on the phone and stating things are "getting her and coming through the vents". Clinician observed patient will present differently when mental health is present, as she stated herself " If I knew I would have to stay I wouldn't had admitted to it". Attending hospitalist in agreement with plan. Consulted with Dr. Staton regarding the management and care of patient.
[2018-02-16] MEDS ORDERED: LORAZEPAM INJ 2 MG/1 ML VIAL IV ONE (13:00)
--- NOTE | 2018-02-16 14:11 | PDOC PROGRESS REPORT ---
Subjective Progress Note for:: 02/16/18 Subjective:: DANDY RODRÍGUEZ is a 67-year-old female with a history of bipolar disorder presents in police custody after she called the police because "the squad is coming". Police officers who escorted the patient states they received a call from the patient requesting protection because of the squad was coming. Dr. Staton filled out IVC paperwork which states that "the patient has a history of bipolar disorder with psychosis and is not currently compliant on her medications. She has been displaying paranoid delusions and thoughts of impending doom by body snatchers, there is concerned for self-harm, ". February 15 No complaints. No problems overnight. 02/16 No new problems. Psych requested a brain imaging. I ordered MRI head, but patient refused. Reason For Visit: ALTERED MENTAL STATUS UTI Physical Exam Vital Signs: Temp Pulse Resp BP Pulse Ox 97.3 F 80 20 166/75 H 100 02/16/18 10:47 02/16/18 10:47 02/16/18 10:47 02/16/18 10:47 02/16/18 10:47 Intake & Output 02/15/18 02/16/18 02/17/18 06:59 06:59 06:59 Intake Total 1890 2249 Output Total 950 3900 Balance 940 -1651 Weight 60.4 kg 63.8 kg General appearance: PRESENT: no acute distress, well-developed, well-nourished Respiratory exam: PRESENT: clear to auscultation mayra. ABSENT: rales, rhonchi, wheezes Cardiovascular exam: PRESENT: RRR. ABSENT: diastolic murmur, rubs, systolic murmur Neurological exam: PRESENT: alert, awake, oriented to person, oriented to place , oriented to time, CN II-XII grossly intact, motor sensory deficit, normal gait. ABSENT: oriented to situation Psychiatric exam: PRESENT: appropriate affect, normal mood. ABSENT: homicidal ideation, suicidal ideation Focused psych exam: PRESENT: delusional, paranoid Skin exam: PRESENT: dry, intact, warm. ABSENT: cyanosis, rash Results Laboratory Results: 02/15/18 04:52 02/16/18 04:48 02/15/18 02/16/18 13:50 04:48 Sodium 142.4 Potassium 4.3 D Chloride 111 H Carbon Dioxide 26 Anion Gap 5 BUN 4 L Creatinine 0.70 Est GFR ( Amer) > 60 Est GFR (Non-Af Amer) > 60 Glucose 103 Calcium 9.5 Magnesium 2.1 Assessment & Plan - Diagnosis (1) Paranoid delusion Is this a current diagnosis for this admission?: Yes Plan: Continue involuntary commitment. Awaiting transfer to psychiatric facility. Not sure how to proceed with brain scan, if patient refuses. Will discuss with psych. (2) Hypokalemia Is this a current diagnosis for this admission?: Yes Plan: Replace as needed. Magnesium was normal. (3) Hyponatremia Is this a current diagnosis for this admission?: Yes Plan: resolved. (4) UTI (urinary tract infection) Qualifiers: Urinary tract infection type: site unspecified Hematuria presence: with hematuria Qualified Code(s): N39.0 - Urinary tract infection, site not specified; R31.9 - Hematuria, unspecified; R31.9 - Hematuria, unspecified Is this a current diagnosis for this admission?: Yes Plan: Day 3 ceftriaxone. Urine culture is growing lactobacillus. Stop antibiotics. - Time Time Spent with patient: 15-24 minutes Medications reviewed and adjusted accordingly: Yes - Inpatient Certification Based on my medical assessment, after consideration of the patient's comorbidities, presenting symptoms, or acuity I expect that the services needed warrant INPATIENT care.: Yes I certify that my determination is in accordance with my understanding of Medicare's requirements for reasonable and necessary INPATIENT services [42 CFR 412.3e].: Yes Medical Necessity: Need Close Monitoring Due to Risk of Patient Decompensation
--- NOTE | 2018-02-16 17:33 | Progress Note ---
Provider Note Provider Note: Spoke with psych. Start lithium 300 mg at bedtime; stop haloperidol; start olazapine 2.5 mg BID; continue IVC
[2018-02-16] MEDS ORDERED: OLANZAPINE 2.5 MG TABLET ONE (19:07)
[2018-02-16] MEDS: OLANZAPINE 2.5 MG TABLET PO SCH (19:19)
[2018-02-16] MEDS: LITHIUM CARBONATE 300 MG CAPSULE PO SCH (22:14)
[2018-02-16] MEDS ORDERED: ALPRAZOLAM 0.5 MG TABLET PO ONE (22:30)
[2018-02-16] MEDS ORDERED: LITHIUM CARBONATE 300 MG CAPSULE ONE (22:34)
[2018-02-17] MEDS: ENOXAPARIN SODIUM INJ 40 MG/0.4 ML DISP.SYRIN SUBCUT SCH (10:35)
[2018-02-17] MEDS: BENZTROPINE MESYLATE INJ 2 MG/2 ML AMPULE IM SCH (10:35)
[2018-02-17] MEDS: OLANZAPINE 2.5 MG TABLET PO SCH ×2 (10:35→18:27)
--- NOTE | 2018-02-17 12:02 | Physician Advisory Note ---
Physician Advisor ProgressNote .: Pursuant to the plan for [facility], I have reviewed the medical record for this patient. Physician Advisor Statement: Please consider documenting, if you agree: 1. "Bipolar I d/o, currently in manic episode with psychotic features" 2. "UTI, suspected & tx'd, but ruled out"? (no documented dysuria, frequency , fever, etc, ...) Status: Hypokalemia worsened from 3.3 to 2.9 after 1st night despite replacement, needing additional tx & monitoring. Pt with persistent paranoid delusions/psychosis, continued responding to internal stimuli. under IVC, not safe for d/c even after 2 nights of hospital care as of yesterday. Continuing close adjustment of Rxs. Appropriate for change to Inpatient status. Thanks! CK
--- NOTE | 2018-02-17 13:19 | PDOC PROGRESS REPORT ---
Subjective Progress Note for:: 02/17/18 Subjective:: DANDY RODRÍGUEZ is a 67-year-old female with a history of bipolar disorder presents in police custody after she called the police because "the squad is coming". Police officers who escorted the patient states they received a call from the patient requesting protection because of the squad was coming. Dr. Staton filled out IVC paperwork which states that "the patient has a history of bipolar disorder with psychosis and is not currently compliant on her medications. She has been displaying paranoid delusions and thoughts of impending doom by body snatchers, there is concerned for self-harm, ". February 15 No complaints. No problems overnight. 02/16 No new problems. Psych requested a brain imaging. I ordered MRI head, but patient refused. 02/17 Patient is extremely cooperative today Agitation has subsided She has been started on lithium yesterday with some improvement of her behavior We will attempt to order MRI studies of the brain Patient is complaining of pain in the buttocks She has no fever no chills family member is at the bedside (her niece) Reason For Visit: ALTERED MENTAL STATUS UTI Physical Exam Vital Signs: Temp Pulse Resp BP Pulse Ox 98.7 F 73 16 142/85 H 100 02/17/18 07:46 02/17/18 07:46 02/17/18 07:46 02/17/18 07:46 02/17/18 07:46 Intake & Output 02/16/18 02/17/18 02/18/18 00:59 00:59 00:59 Intake Total 2569 742 500 Output Total 3600 1250 Balance -1031 -508 500 Weight 60.4 kg 63.8 kg 64.4 kg General appearance: PRESENT: no acute distress, cooperative Head exam: PRESENT: atraumatic, normocephalic Eye exam: PRESENT: conjunctiva pink, EOMI, PERRLA. ABSENT: scleral icterus Neck exam: ABSENT: carotid bruit, JVD, lymphadenopathy, thyromegaly Respiratory exam: PRESENT: clear to auscultation mayra. ABSENT: rales, rhonchi, wheezes Cardiovascular exam: PRESENT: RRR. ABSENT: diastolic murmur, rubs, systolic murmur GI/Abdominal exam: PRESENT: normal bowel sounds, soft. ABSENT: distended, guarding, mass, organolmegaly, rebound, tenderness Neurological exam: PRESENT: alert, awake, CN II-XII grossly intact. ABSENT: motor sensory deficit Psychiatric exam: PRESENT: normal mood Skin exam: PRESENT: other - Marked erythema buttocks Results Laboratory Results: 02/15/18 04:52 02/16/18 04:48 Assessment & Plan - Diagnosis (1) Hypokalemia Is this a current diagnosis for this admission?: Yes Plan: Is improved has resolved (2) Hyponatremia Is this a current diagnosis for this admission?: Yes (3) Paranoid delusion Is this a current diagnosis for this admission?: Yes Plan: Patient does have a psych history She is much improved with treatment initiated by psychiatry We will schedule the patient for CT of the head Also check B12 and TSH (4) UTI (urinary tract infection) Qualifiers: Urinary tract infection type: site unspecified Hematuria presence: with hematuria Qualified Code(s): N39.0 - Urinary tract infection, site not specified; R31.9 - Hematuria, unspecified; R31.9 - Hematuria, unspecified Is this a current diagnosis for this admission?: Yes Plan: Urine culture was negative ; lactobacillus was cultured Patient had no fever no leukocytosis no dysuria There is no need to treat - Time Time Spent with patient: Patient appears quite cooperative at this time Continue one-to-one Patient status was switched to inpatient Time Spent with patient: 25-34 minutes
[2018-02-17] MEDS ORDERED: NYSTATIN TOPICAL POWDER 15 GM TP ONE (15:00)
[2018-02-17 15:34] LABS: FREE T4 (FREE THYROXINE) 1.62 ng/dL (0.78-2.19)
--- NOTE | 2018-02-17 15:47 | PSYCHOLOGICAL NOTE ---
Psych Note - Psych Note Psych Note: Reason for consult: Psychosis, IVC Patient presents to [facility] ED with a history of bipolar disorder presents in police custody after she called the police because "the squad is coming". Police officers who escorted the patient states they received a call from the patient requesting protection because of the squad was coming. Conducted check in with patient Clinician notes patient still refused to make eye contact during assessment i.e. keeping her eyes closed. Patient states that she takes her medication was given to her however has a difficult time swallowing. She reports "pudding snack wanda I will eat it then." When asked if patient was having any difficulties seeing things that scare her she states "I guess not." When patient was asked if there is any new concerns she stated "my hinny is burning. " medications recommendations per [facility]'s contracted psychiatrist, Dr. Jay Jay MD are as follows 1. lithium 300 mg twice daily for mood stabilization 2. Haldol 5 mg twice daily for psychosis 3. Cogentin 1 mg daily to prevent side effects from the haldol Diagnosis 296.44 (F31.2) Bipolar 1 disorder, current episode manic with psychotic features. Patient is recommended to continue under IVC. It was determined the patient was cheeking her medications yesterday. Patient still refuses to make eye contact is believed at this time the patient is still having difficulty with continued psychosis. Clinician notes patient has a long psychiatric history and does attempt to present different with behavioral health team; however, still is unable to present at patient's known baseline. Once patient is medically cleared, behavior health team will begin looking for psychiatric placement. Dr. Staton was consulted on the care and management of this patient ; attending physician is in agreement with recommendations and disposition.
[2018-02-17 15:48] LABS: THYROID STIMULATING HORMONE 0.73 uIU/mL (0.47-4.68)
[2018-02-17] MEDS: NYSTATIN TOPICAL POWDER 15 GM TP SCH (21:41)
[2018-02-17] MEDS: LITHIUM CARBONATE 300 MG CAPSULE PO SCH (21:41)
--- NOTE | 2018-02-18 09:40 | RADIOLOGY REPORT (SQ) ---
EXAM DESCRIPTION: CT HEAD WITHOUT COMPLETED DATE/TIME: 02/18/2018 9:30 am REASON FOR STUDY: AMS F29 UNSP PSYCHOSIS NOT DUE TO A SUBSTANCE OR KNOWN PHYSIOL C E03.9 HYPOTHYRO IDISM, UNSPECIFIED COMPARISON: None. TECHNIQUE: Axial images acquired through the brain without intravenous contrast. Images reviewed wi th bone, brain and subdural windows. Additional sagittal and coronal reconstructions were generated. Images stored on PACS. All CT scanners at this facility use dose modulation, iterative reconstruction, and/or weight based d osing when appropriate to reduce radiation dose to as low as reasonably achievable (ALARA). [facility]: Dose Right [facility]: CareDose [facility]: Dose Right [facility]: Teradose 4D [facility]: INSOMENIA RADIATION DOSE: mGy. LIMITATIONS: None. FINDINGS: VENTRICLES: Normal size and contour. CEREBRUM: No masses. No hemorrhage. No midline shift. No evidence for acute infarction. Normal gra y/white matter differentiation. No areas of low density in the white matter. CEREBELLUM: No masses. No hemorrhage. No alteration of density. No evidence for acute infarction. EXTRAAXIAL SPACES: No fluid collections. No masses. ORBITS AND GLOBE: No intra- or extraconal masses. Normal contour of globe without masses. CALVARIUM: No fracture. PARANASAL SINUSES: No fluid or mucosal thickening. SOFT TISSUES: No mass or hematoma. OTHER: No other significant finding. IMPRESSION: NORMAL BRAIN CT WITHOUT CONTRAST. EVIDENCE OF ACUTE STROKE: No COMMENT: Quality ID # [id number]: Final reports with documentation of one or more dose reduction techniques (e.g., Automated exposure control, adjustment of the mA and/or kV according to patient size, use of iterative reconstruction technique) TECHNICAL DOCUMENTATION: JOB ID: [id number] [employer]- All Rights Reserved Reading location - IP/workstation name: [email or web address]
[2018-02-18] MEDS: OLANZAPINE 2.5 MG TABLET PO SCH ×2 (10:22→21:15)
[2018-02-18] MEDS: ENOXAPARIN SODIUM INJ 40 MG/0.4 ML DISP.SYRIN SUBCUT SCH (10:22)
[2018-02-18] MEDS: NYSTATIN TOPICAL POWDER 15 GM TP SCH ×2 (10:23→21:15)
[2018-02-18] MEDS: BENZTROPINE MESYLATE INJ 2 MG/2 ML AMPULE IM SCH (10:23)
--- NOTE | 2018-02-18 17:25 | PDOC PROGRESS REPORT ---
Subjective Progress Note for:: 02/18/18 Subjective:: Doing OK. Major complaint is her IV. Feels that her mood is OK. Continues to refuse MRI brain due to claustrophobia. No other complaints. Reason For Visit: PSYCHOSIS,HYPOKALEMIA Physical Exam Vital Signs: Temp Pulse Resp BP Pulse Ox 98.3 F 97 16 174/78 H 100 02/18/18 15:33 02/18/18 15:33 02/18/18 15:33 02/18/18 15:33 02/18/18 15:33 Intake & Output 02/17/18 02/18/18 02/19/18 06:59 06:59 06:59 Intake Total 1374 570 Output Total 1175 Balance 199 570 Weight 63.3 kg General appearance: PRESENT: no acute distress, cooperative, thin Mouth exam: PRESENT: moist Respiratory exam: PRESENT: unlabored. ABSENT: tachypnea Cardiovascular exam: PRESENT: +S1, +S2. ABSENT: tachycardia GI/Abdominal exam: PRESENT: soft. ABSENT: tenderness Extremities exam: PRESENT: full ROM. ABSENT: pedal edema Musculoskeletal exam: PRESENT: ambulatory Neurological exam: PRESENT: alert, awake, CN II-XII grossly intact Psychiatric exam: PRESENT: appropriate affect Skin exam: PRESENT: abrasion, skin tears Results Laboratory Results: 02/13/18 02/13/18 02/14/18 23:00 23:00 03:08 WBC 13.2 H RBC Hgb Hct Seg Neutrophils % 79.3 H Lymphocytes % 9.8 L Absolute Neutrophils 10.5 H Sodium 136.0 L Potassium 3.3 L Chloride 95 L Carbon Dioxide 31 H BUN Est GFR (Non-Af Amer) 52 L Calcium 10.7 H AST 68 H ALT 77 H Urine Ketones TRACE H Urine Blood SMALL H Urine Urobilinogen 2.0 H Ur Leukocyte Esterase LARGE H Salicylates < 1.0 L Acetaminophen < 10 L [place] 1.5 H 02/15/18 02/15/18 02/16/18 04:52 04:52 04:48 WBC RBC 3.60 L Hgb 11.1 L Hct 33.5 L Seg Neutrophils % Lymphocytes % Absolute Neutrophils Sodium Potassium 2.9 L* Chloride 111 H Carbon Dioxide BUN 4 L Est GFR (Non-Af Amer) Calcium AST ALT Urine Ketones Urine Blood Urine Urobilinogen Ur Leukocyte Esterase Salicylates Acetaminophen [place] Impressions: Head CT 02/18/18 08:00 IMPRESSION: NORMAL BRAIN CT WITHOUT CONTRAST. EVIDENCE OF ACUTE STROKE: No Assessment & Plan - Diagnosis (1) Bipolar 1 disorder, manic, moderate Is this a current diagnosis for this admission?: Yes Plan: Long standing history. Psych following - MRI brain has been requested however patient is claustrophobic - Willing to consider for 02/19 - We discussed pre-treatment with Valium to help with anxiety - She will consider overnight - Patient psychiatrist is Dr. Goyal - Current medications 1. lithium 300 mg twice daily for mood stabilization 2. Haldol 5 mg twice daily for psychosis 3. Cogentin 1 mg daily to prevent side effects from the haldol - otherwise medically cleared and can be placed by Psych (2) Hyponatremia Is this a current diagnosis for this admission?: Yes Plan: Stable, no recent labs. - Time Time Spent with patient: 25-34 minutes Anticipated discharge: Other
[2018-02-18] MEDS: LITHIUM CARBONATE 300 MG CAPSULE PO SCH (21:15)
[2018-02-19] MEDS: OLANZAPINE 2.5 MG TABLET PO SCH ×2 (10:44→21:27)
[2018-02-19] MEDS: BENZTROPINE MESYLATE INJ 2 MG/2 ML AMPULE IM SCH (10:44)
[2018-02-19] MEDS: ENOXAPARIN SODIUM INJ 40 MG/0.4 ML DISP.SYRIN SUBCUT SCH (10:46)
[2018-02-19] MEDS: NYSTATIN TOPICAL POWDER 15 GM TP SCH ×2 (10:54→21:27)
--- NOTE | 2018-02-19 13:38 | PSYCHOLOGICAL NOTE ---
Psych Note - Psych Note Psych Note: Reason for consult: Psychosis, IVC Patient presents to [facility] ED with a history of bipolar disorder presents in police custody after she called the police because "the squad is coming". Police officers who escorted the patient states they received a call from the patient requesting protection because of the squad was coming. Conducted check in with patient: Clinician spoke with patient confirmed she knows she is at [facility] because "I thought the squad was after me... I do not know why I was thinking that... If I actually had a reason I have forgotten it." She disclosed that she was feeling some sadness yesterday because she was "disappointed in myself. " She reports she is very nervous about being told she has to have an MRI "I am the most severe case of claustrophobia you can find... I will make it... I know will kill me if you make me." Patient confirms in the past that she frequently does not take her medication, but is able to identify that she was supposed to take lithium carbonate 450 mg twice daily. When asked if she had recently seen or heard anything that has been concerning or scared her; patient stated "no, although sometimes I see floaters... I you ask me if I am having hallucinations... I do not think so." Patient identified first thing she would do when she did get home would be to "wash and clean." Collateral Information: Florecita Dupont ( Patient's niece ) [phone] Cell: [phone] can leave voicemail Clinician spoke with patient's niece, Florecita, who disclosed she is very happy the patient will be able to come home. She disclosed that they were making plans of putting her grandmother into a nursing facility until Daisy could come home. If she is coming home they will not have to do that now. Medications recommendations per [facility]'s contracted psychiatrist, Dr. Jay Jay MD are as follows 1. lithium 300 mg at night for mood stabilization 2. Zyprexa 2.5 mg twice per day for mood stabilization and psychosis 3. Cogentin 1mg daily to prevent side effects of Zyprexa Diagnosis 296.44 (F31.2) Bipolar 1 disorder, current episode manic with psychotic features. Impression\\plan: Patient is considered cleared from acute psychiatric services is recommended for rescind of IVC. Patient no longer meets IVC criteria per [place] GS 122C. Delusions are absent and behavior is congruent with intact reality based presentation (ie. Patient was able to conduct a clear, organized and linear conversation, made good eye contact, with conversational speech being within normal rate, tone and prosody). Patient read clinician's name off her badge and correctly identified clinician by name throughout evaluation; she thanked clinician for coming up to see her at the end of evaluation. Clinician notes patient is very fixated on having to possibly take an MRI and is very anxious. This is stemming from patient's disclose claustrophobia and not part of patient's initial presenting psychosis. Patient's family is supportive of clearance from acute psychiatric services. Patient is recommended to continue mental health services through her outpatient provider and is urged to take medications as prescribed. Dr. Staton was consulted on the care and management of this patient.
--- NOTE | 2018-02-19 17:37 | PDOC PROGRESS REPORT ---
Subjective Progress Note for:: 02/19/18 Subjective:: Doing better. Of note is that head CT was negative and patient did not want and MRI because she feels claustrophobic. She has been cleared by psych and patient is relieved that she does not have to do the MRI. Denies fever or chills, no chest pain or shortness of breath or palpitations. Denies suicidal ideation or homicidal ideation at this time, no visual hallucinations or auditory hallucinations. Reason For Visit: PSYCHOSIS,HYPOKALEMIA Physical Exam Vital Signs: Temp Pulse Resp BP Pulse Ox 98.9 F 65 18 141/60 H 100 02/19/18 15:45 02/19/18 15:45 02/19/18 15:45 02/19/18 15:45 02/19/18 15:45 Intake & Output 02/18/18 02/19/18 02/20/18 06:59 06:59 06:59 Intake Total 1374 1050 Output Total 1175 700 Balance 199 350 Weight 63.3 kg 63.3 kg GEN: NAD, well-developed, well-nourished CV: RRR, NL S1S2 LUNGS: CTA bilaterally ABDOMEN Soft, NT, +BS EXTERMITIES: No e/c/c NEURO: Alert, oriented 3, nonfocal Results Laboratory Results: [place] level today decreased at 0.3. Impressions: Head CT 02/18/18 08:00 IMPRESSION: NORMAL BRAIN CT WITHOUT CONTRAST. EVIDENCE OF ACUTE STROKE: No Assessment & Plan - Plan Summary Plan Summary: (1) Bipolar 1 disorder, manic, moderate Is this a current diagnosis for this admission?: Yes Plan: Long standing history. Psych following - MRI brain has been discontinued as patient did not want - Patient psychiatrist is Dr. Goyal - Current medications 1. lithium 300 mg daily for mood stabilization 2. Haldol 5 mg twice daily for psychosis 3. Cogentin 1 mg daily to prevent side effects from the haldol -Psych as per patient. D/C one-to-one sitter and psych's recommendation as patient no longer suicidal. -We will increase lithium to 300 mg twice daily as labeled low. Patient was on 450 mg twice daily as outpatient. (2) Hyponatremia Is this a current diagnosis for this admission?: Yes Plan: Stable, no recent labs. Follow-up labs in a.m.
[2018-02-19] MEDS: LITHIUM CARBONATE 300 MG CAPSULE PO SCH (21:27)
[2018-02-20] MEDS ORDERED: LORAZEPAM INJ 2 MG/1 ML VIAL IV ONE (00:30)
[2018-02-20 01:35] LABS: CREATINE KINASE MB 2.13 ng/mL (<4.55)
[2018-02-20 01:41] LABS: TROPONIN I < 0.012 ng/mL
[2018-02-20 06:59] LABS: ABSOLUTE BASOPHILS # (AUTO) 0.1 10^3/uL (0.0-0.2); ABSOLUTE EOSINOPHILS # (AUTO) 0.3 10^3/uL (0.0-0.6); ABSOLUTE MONOCYTES (AUTO) 0.9 10^3/uL (0.1-1.4); BASOPHILS % (AUTO) 0.8 % (0-2); EOSINOPHILS % (AUTO) 4.1 % (0-6); HEMATOCRIT 35.2 % (36.0-47.0); HEMOGLOBIN 11.7 g/dL (12.0-15.5); LYMPHOCYTES % (AUTO) 14.3 % (13-45); MEAN CORPUSCULAR HEMOGLOBIN 30.5 pg (27.0-33.4); MEAN CORPUSCULAR HGB CONC 33.3 g/dL (32.0-36.0); MEAN CORPUSCULAR VOLUME 92 fl (80-97); MONOCYTES % (AUTO) 11.9 % (3-13); PLATELET COUNT 333 10^3/uL (150-450); RED BLOOD COUNT 3.84 10^6/uL (3.72-5.28); SEGMENTED NEUTROPHILS % (AUTO) 68.9 % (42-78); TOTAL CELLS COUNTED % (AUTO) 100 %; WHITE BLOOD COUNT 7.2 10^3/uL (4.0-10.5)
[2018-02-20 07:18] LABS: ALANINE AMINOTRANSFERASE 43 U/L (9-52); ALBUMIN 3.5 g/dL (3.5-5.0); ALKALINE PHOSPHATASE 63 U/L (38-126); ANION GAP 8 (5-19); ASPARTATE AMINO TRANSFERASE 21 U/L (14-36); BILIRUBIN,DIRECT 0.1 mg/dL (0.0-0.4); BILIRUBIN,TOTAL 0.5 mg/dL (0.2-1.3); BLOOD UREA NITROGEN 5 mg/dL (7-20); CALCIUM 9.5 mg/dL (8.4-10.2); CARBON DIOXIDE 29 mmol/L (22-30); CHLORIDE 107 mmol/L (98-107); CREATINE KINASE 62 U/L (30-135); GLUCOSE 95 mg/dL (75-110); LITHIUM 0.4 mEq/L (0.6-1.2); POTASSIUM 3.6 mmol/L (3.6-5.0); TOTAL PROTEIN 5.5 g/dL (6.3-8.2)
[2018-02-20 07:29] LABS: CREATINE KINASE MB 1.63 ng/mL (<4.55)
[2018-02-20 07:32] LABS: TROPONIN I < 0.012 ng/mL
[2018-02-20] MEDS: BENZTROPINE MESYLATE INJ 2 MG/2 ML AMPULE IM SCH (10:52)
[2018-02-20] MEDS: OLANZAPINE 2.5 MG TABLET PO SCH ×2 (10:52→21:45)
[2018-02-20] MEDS: ENOXAPARIN SODIUM INJ 40 MG/0.4 ML DISP.SYRIN SUBCUT SCH (10:53)
[2018-02-20] MEDS: NYSTATIN TOPICAL POWDER 15 GM TP SCH ×2 (10:57→21:45)
[2018-02-20 14:29] LABS: CREATINE KINASE MB 1.47 ng/mL (<4.55)
[2018-02-20 14:30] LABS: TROPONIN I < 0.012 ng/mL
--- NOTE | 2018-02-20 18:34 | PDOC PROGRESS REPORT ---
Subjective Progress Note for:: 02/20/18 Subjective:: Patient feeling better at this time although still with intermittent hallucinations. One-to-one sitter was reinstituted last night for patient safety. She is agreeable to this. Denies suicidal ideation or homicidal ideation at this time, no chest pain or shortness of breath or palpitations. No fever or chills, no nausea or vomiting. Reason For Visit: PSYCHOSIS,HYPOKALEMIA Physical Exam Vital Signs: Temp Pulse Resp BP Pulse Ox 98.6 F 86 16 151/81 H 99 02/20/18 15:31 02/20/18 15:31 02/20/18 15:31 02/20/18 15:31 02/20/18 15:31 Intake & Output 02/19/18 02/20/18 02/21/18 06:59 06:59 06:59 Intake Total 1050 1673 Output Total 700 500 Balance 350 1173 Weight 63.3 kg 64.5 kg GEN: NAD, well-developed, well-nourished CV: RRR, NL S1S2 LUNGS: CTA bilaterally ABDOMEN Soft, NT, +BS EXTERMITIES: No e/c/c NEURO: Alert, oriented 3, nonfocal Results Laboratory Results: 02/20/18 06:34 02/20/18 06:34 02/20/18 02/20/18 06:34 06:34 WBC 7.2 RBC 3.84 Hgb 11.7 L Hct 35.2 L MCV 92 MCH 30.5 MCHC 33.3 RDW 13.0 Plt Count 333 Seg Neutrophils % 68.9 Lymphocytes % 14.3 Monocytes % 11.9 Eosinophils % 4.1 Basophils % 0.8 Absolute Neutrophils 5.0 Absolute Lymphocytes 1.0 Absolute Monocytes 0.9 Absolute Eosinophils 0.3 Absolute Basophils 0.1 Sodium 144.0 Potassium 3.6 Chloride 107 Carbon Dioxide 29 Anion Gap 8 BUN 5 L Creatinine 0.72 Est GFR ( Amer) > 60 Est GFR (Non-Af Amer) > 60 Glucose 95 Calcium 9.5 Total Bilirubin 0.5 AST 21 ALT 43 Alkaline Phosphatase 63 Total Protein 5.5 L Albumin 3.5 02/20/18 02/20/18 02/20/18 00:33 00:33 06:34 Creatine Kinase 68 62 CK-MB (CK-2) 2.13 Troponin I < 0.012 02/20/18 02/20/18 02/20/18 06:34 13:04 13:04 Creatine Kinase 58 CK-MB (CK-2) 1.63 1.47 Troponin I < 0.012 < 0.012 Impressions: Head CT 02/18/18 08:00 IMPRESSION: NORMAL BRAIN CT WITHOUT CONTRAST. EVIDENCE OF ACUTE STROKE: No Assessment & Plan - Plan Summary Plan Summary: (1) Bipolar 1 disorder, manic, moderate Is this a current diagnosis for this admission?: Yes Plan: Long standing history. Psych has signed off - MRI brain was discontinued as patient did not want - Patient psychiatrist is Dr. Goyal -[place] level remains low today at 0.4. We will continue to follow as just increased to twice daily yesterday. - Current medications 1. lithium 300 mg BID for mood stabilization --home dose was 450mg bid 2. Haldol 5 mg twice daily for psychosis 3. Cogentin 1 mg daily to prevent side effects from the haldol -Cont. 1 to 1 sitter for now per patient's consent. -Possible home in a.m. if stable/lithium level better. (2) Hyponatremia Is this a current diagnosis for this admission?: Yes Plan: Stable/resolved.
[2018-02-20] MEDS: LITHIUM CARBONATE 300 MG CAPSULE PO SCH (21:45)
[2018-02-21] MEDS: ENOXAPARIN SODIUM INJ 40 MG/0.4 ML DISP.SYRIN SUBCUT SCH (10:51)
[2018-02-21] MEDS: BENZTROPINE MESYLATE INJ 2 MG/2 ML AMPULE IM SCH (10:51)
[2018-02-21] MEDS: OLANZAPINE 2.5 MG TABLET PO SCH (10:51)
[2018-02-21] MEDS: NYSTATIN TOPICAL POWDER 15 GM TP SCH (10:51)
--- NOTE | 2018-02-21 11:39 | PSYCHOLOGICAL NOTE ---
Psych Note - Psych Note Psych Note: Reason for consult: Psychosis, IVC Consulted with Hospitalist regarding their concern of the patient's subtheraputic levels of [place]. Behavior health team discussed and confirms medication recommendations with no changes. Patient's level of lithium will never be therapeutic level taking only 300 mg nightly; however, she is also taking Zyprexa to assist with her mental health symptoms. Medications recommendations per [facility]'s contracted psychiatrist, Dr. Jay Jay MD are as follows 1. lithium 300 mg at night for mood stabilization 2. Zyprexa 2.5 mg twice per day for mood stabilization and psychosis 3. Cogentin 1mg daily to prevent side effects of Zyprexa Diagnosis 296.44 (F31.2) Bipolar 1 disorder, current episode manic with psychotic features. Impression\plan: Patient is considered cleared from acute psychiatric services is recommended for rescind of IVC. Patient no longer meets IVC criteria per [place] GS 122C.
[2018-02-21 16:04] VITALS: BP 152/82
--- NOTE | 2018-02-21 19:52 | PDOC DISCHARGE SUMMARY ---
General - Admit/Disc Date/PCP Admission Date/Primary Care Provider: 02/17/18 13:13 Discharge Date: 02/21/18 - Additional Information Resuscitation Status: Full Code Discharge Diet: As Tolerated Discharge Activity: Activity As Tolerated Prescriptions: Benztropine Mesylate [Cogentin 1 mg Tablet] 1 tab PO DAILY #30 tab Overly Carbonate [Lithobid 300 mg Capsule] 300 mg PO QHS 30 Days #30 capsule Olanzapine [Zyprexa 2.5 mg Tablet] 2.5 mg PO Q12 30 Days tablet Home Medications: Benztropine Mesylate [Cogentin 1 mg Tablet] 1 tab PO DAILY #30 tab 02/21/18 Overly Carbonate [Lithobid 300 mg Capsule] 300 mg PO QHS 30 Days #30 capsule Olanzapine [Zyprexa 2.5 mg Tablet] 2.5 mg PO Q12 30 Days tablet 02/21/18 History of Present Illness History of Present Illness: Patient was admitted on 02/14/[address] Duarte after presenting as in HPI below: " DANDY RODRÍGUEZ is a 67-year-old female with a history of bipolar disorder presents in police custody after she called the police because "the squad is coming". Police officers who escorted the patient states they received a call from the patient requesting protection because of the squad was coming. Dr. Staton filled out IVC paperwork which states that "the patient has a history of bipolar disorder with psychosis and is not currently compliant on her medications. She has been displaying paranoid delusions and thoughts of impending doom by body snatchers, there is concerned for self-harm, ". 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 . On my exam patient denies any physical complaints. She says she has been compliant with her lithium. Patient's lab work showed hyponatremia, hypokalemia and uti. " Hospital Course Hospital Course: Patient was admitted on managed as follows: (1) Bipolar 1 disorder, manic, moderate Is this a current diagnosis for this admission?: Yes Plan: Long standing history. Head CT was negative. Psych evaluate the patient. - MRI brain was recommended but patient did not want due to claustrophobia even though she was offered anxiolytic, and the MRI was discontinued in light of negative head CT. - Patient psychiatrist is Dr. Goyal -Overly level remains was elevated. The dose was decreased to just 300 mg nightly for mood stabilization and psychiatry recommended the followin. lithium 300 mg at night for mood stabilization 2. Zyprexa 2.5 mg twice per day for mood stabilization and psychosis 3. Cogentin 1mg daily to prevent side effects of Zyprexa -Psych stated that lithium level will be subtherapeutic at this dose and no need to check. -Patient has not been cleared by psych and is being discharged in stable condition. No suicidal ideation or homicidal ideation, no more hallucinations. (2) Hyponatremia Is this a current diagnosis for this admission?: Yes Plan: Resolved. She was treated with IV fluid. (3) Paranoid delusion Is this a current diagnosis for this admission?: Yes Plan: She is much improved with treatment initiated by psychiatry Head CT, vitamin B12, TSH and free T4 are unremarkable. (4) UTI (urinary tract infection) Qualifiers: Urinary tract infection type: site unspecified Hematuria presence: with hematuria Qualified Code(s): N39.0 - Urinary tract infection, site not specified; R31.9 - Hematuria, unspecified; R31.9 - Hematuria, unspecified Is this a current diagnosis for this admission?: Yes Plan: Urine culture was negative ; lactobacillus was cultured Patient had no fever no leukocytosis no dysuria There is no need to treat, so Rocephin that she was originally started on was discontinued, although she received 3 days doses prior to this, which would have been sufficient treatment anyway. Physical Exam Vital Signs: Temp Pulse Resp BP Pulse Ox 99.0 F 93 19 152/82 H 100 02/21/18 15:19 02/21/18 15:19 02/21/18 15:19 02/21/18 15:19 02/21/18 15:19 Intake & Output 02/20/18 02/21/18 02/22/18 06:59 06:59 06:59 Intake Total 1673 1426 620 Output Total 500 Balance 1173 1426 620 Weight 64.5 kg 64.5 kg GEN: NAD, well-developed, well-nourished CV: RRR, NL S1S2 LUNGS: CTA bilaterally ABDOMEN Soft, NT, +BS EXTERMITIES: No e/c/c NEURO: Alert, oriented 3, nonfocal Results Laboratory Results: 02/20/18 06:34 02/20/18 06:34 02/20/18 02/20/18 02/20/18 00:33 00:33 06:34 Creatine Kinase 68 62 CK-MB (CK-2) 2.13 Troponin I < 0.012 02/20/18 02/20/18 02/20/18 06:34 13:04 13:04 Creatine Kinase 58 CK-MB (CK-2) 1.63 1.47 Troponin I < 0.012 < 0.012 Impressions: Head CT 02/18/18 08:00 IMPRESSION: NORMAL BRAIN CT WITHOUT CONTRAST. EVIDENCE OF ACUTE STROKE: No Qualifiers - * PATEINT BEING DISCHARGED WITH ANY OF THE FOLLOWING DIAGNOSIS?: No
== END 2018-02-21 16:39 | disposition home or self-care (01) | DRG 885 ==
LOC: ER 22:18 → EH 02-14 12:51 → 4W 02-14 14:29 → OBSVTOIN 02-17 13:13
PROVIDERS: ADMIT Family Medicine; ATTEND Family Medicine
DX: F31.2 Bipolar disorder, current episode manic severe with psychotic features (principal); N39.0 Urinary tract infection, site not specified; E87.1 Hypo-osmolality and hyponatremia; F22 Delusional disorders; R31.9 Hematuria, unspecified; E87.6 Hypokalemia; F40.240 Claustrophobia; Z53.29 Procedure and treatment not carried out because of patient's decision for other reasons; Z87.891 Personal history of nicotine dependence; Z82.49 Family history of ischemic heart disease and other diseases of the circulatory system
CPT/HCPCS: 36415; 70450; 80048; 80053; 80076; 80178; 80307; 81001; 82550; 82553; 82607; 83735; 84439; 84443; 84484; 85025; 85027; 87040; 87086; 93005; 93010; 96372; 99285; G0378; J0515; J0696; J1630; J1650; J2060; J3490; J7030

== ENCOUNTER 2018-03-16 09:30 | Emergency (ER) | payer MEDICARE, OTHER ==
--- NOTE | 2018-03-16 10:16 | ER Document Report ---
ED Medical Screen (RME) - General Chief Complaint: Medical Clearance Stated Complaint: PSYCH EVAL Time Seen by Provider: 03/16/18 10:05 Notes: 67-year-old female bipolar patient not taking her medications brought to emergency room for medical clearance. By history she claims that she cannot swallow her medications and not eating. She was admitted here on 02/14/2018 with psychosis and hypokalemia. She was able to take her medications during that seven-day admission. She has been getting into arguments with her 88-year-old mother with whom she lives and police were called to the home a few times this past week. I have greeted and performed a rapid initial assessment of this patient. A comprehensive ED assessment and evaluation of the patient, analysis of test results and completion of the medical decision making process will be conducted by additional ED providers. TRAVEL OUTSIDE OF THE [place] IN LAST 30 DAYS: No - Related Data Allergies/Adverse Reactions: No Known Allergies Allergy (Verified 03/16/18 09:35) Home Medications: congentin 1 mg daily, zyprexia 2.5mg q12 hours, lithium 300mg bid-These were medications that she was on but has not taken since before September. Past Medical History - Social History Chew tobacco use (# tins/day): No Frequency of alcohol use: None Drug Abuse: None Neurological Medical History: Denies: Hx Seizures Renal/ Medical History: Denies: Hx Peritoneal Dialysis Psychiatric Medical History: Reports: Hx Bipolar Disorder Past Surgical History: Reports: Hx Gynecologic Surgery - D&C, Hx Tonsillectomy. Denies: Hx Hysterectomy - Immunizations Hx Diphtheria, Pertussis, Tetanus Vaccination: Yes Physical Exam - Vital signs Vitals: Temp Pulse Resp BP Pulse Ox 98.4 F 75 16 135/71 H 99 03/16/18 09:35 03/16/18 09:35 03/16/18 09:35 03/16/18 09:35 03/16/18 09:35 Course - Vital Signs Vital signs: Temp Pulse Resp BP Pulse Ox 98.4 F 75 16 135/71 H 99 03/16/18 09:35 03/16/18 09:35 03/16/18 09:35 03/16/18 09:35 03/16/18 09:35
--- NOTE | 2018-03-16 10:30 | EKG REPORT ---
SEVERITY:- BORDERLINE ECG - SINUS RHYTHM PROBABLE LEFT ATRIAL ABNORMALITY MINIMAL ST DEPRESSION, ANTEROLATERAL LEADS : Confirmed by: Malou Davila 16-Mar-2018 10:30:02
[2018-03-16 10:55] LABS: ABSOLUTE EOSINOPHILS # (AUTO) 0.1 10^3/uL (0.0-0.6); ABSOLUTE LYMPHOCYTES (AUTO) 0.8 10^3/uL (0.5-4.7); ABSOLUTE MONOCYTES (AUTO) 0.6 10^3/uL (0.1-1.4); ABSOLUTE NEUT (AUTO) 6.2 10^3/uL (1.7-8.2); BASOPHILS % (AUTO) 0.6 % (0-2); EOSINOPHILS % (AUTO) 0.9 % (0-6); HEMATOCRIT 38.2 % (36.0-47.0); HEMOGLOBIN 12.6 g/dL (12.0-15.5); LYMPHOCYTES % (AUTO) 10.4 % (13-45); MEAN CORPUSCULAR VOLUME 91 fl (80-97); MONOCYTES % (AUTO) 8.1 % (3-13); PLATELET COUNT 370 10^3/uL (150-450); RED BLOOD COUNT 4.19 10^6/uL (3.72-5.28); RED CELL DISTRIBUTION WIDTH 13.3 % (11.5-14.0); TOTAL CELLS COUNTED % (AUTO) 100 %; WHITE BLOOD COUNT 7.8 10^3/uL (4.0-10.5)
[2018-03-16 11:07] LABS: ALANINE AMINOTRANSFERASE 34 U/L (9-52); ALBUMIN 4.2 g/dL (3.5-5.0); ALKALINE PHOSPHATASE 81 U/L (38-126); ANION GAP 11 (5-19); ASPARTATE AMINO TRANSFERASE 27 U/L (14-36); BILIRUBIN,DIRECT 0.2 mg/dL (0.0-0.4); BILIRUBIN,TOTAL 0.8 mg/dL (0.2-1.3); BLOOD UREA NITROGEN 11 mg/dL (7-20); CARBON DIOXIDE 29 mmol/L (22-30); CHLORIDE 103 mmol/L (98-107); GLUCOSE 105 mg/dL (75-110); SODIUM 143.4 mmol/L (137-145); TOTAL PROTEIN 6.7 g/dL (6.3-8.2)
[2018-03-16 11:08] LABS: ACETAMINOPHEN < 10 ug/mL (10-30); ALCOHOL < 10 mg/dL (NONE DETECTED); LITHIUM < 0.2 mEq/L (0.6-1.2); SALICYLATE < 1.0 mg/dL (2.0-20.0)
--- NOTE | 2018-03-16 11:37 | PSYCHOLOGICAL NOTE ---
Psych Note - Psych Note Psych Note: Reason for Consult: Off medication and increase in irritability/paranoia Patient's neighbor at bedside per patient's request 67 year-old female bipolar patient not taking her medications brought to emergency room for medical clearance. By history she claims that she cannot swallow her medications and not eating. Patient disclosed that she called [facility] attempting to get inpatient and was told she came to [facility] for medical clearance because of her inability to swallow food. Patient disclosed that she has been fighting with her mom lately and has been off her medication for a few months. Clinician reminded patient that she was at [facility] ED last month at which point she was able to eat food and was taking medications. Patient disclosed that if there is a way to open her medication and put it in applesauce she would take it. Patient was asked if she has had any difficulties with seeing or hearing things that confuse her patient responded "they tried to ask if I have hallucinations or delusions?" Patient's neighbor disclosed that he has noticed patient do some odd behaviors that indicated some paranoia. He also disclosed that she has been fighting with her elderly mother who just got out of hospital herself. Clinician contacted [facility] and confirmed that they did a phone consultation for the patient. The patient disclosed on the phone to them that she would need all her food pured or provided baby food. They disclosed that they would be unable to provide that level of medical care for the patient. Patient is alert and orientated to person, place, time and circumstance. Mood is euthymic with congruent affect. Patient denies suicidal and homicidal ideation. Somatic delusions of being unable to eat and swallow her food and pills are noted patient's neighbor reports an increase in paranoid behaviors. Eye contact was well-maintained. Conversational speech was within normal rate, tone and prosody. Intellectual abilities appear to be within the average range. Attention and concentration were good. Insight, judgment, impulse control are fair. Medications recommendations per [facility]'s contracted psychiatrist, Dr. Jay Jay MD are as follows 1. lithium 300 mg at night for mood stabilization 2. Zyprexa Zydis 2.5 mg twice per day for mood stabilization and psychosis 3. Cogentin 1mg daily to prevent side effects of Zyprexa Behavioral Health Team Notes: Patient's level of lithium will never be therapeutic level taking only 300 mg nightly; however, she is also taking Zyprexa to assist with her mental health symptoms. Diagnosis 296.44 (F31.2) Bipolar 1 disorder, most current episode manic with psychotic features. Impression\\plan: Patient is recommended for overnight hold for mental health observation. Patient discloses being unable to swallow her medications and states that she has not been able to eat because she chokes on food. Patient's neighbor disclosed an increase in paranoid behavior and aggression towards her elderly mother that she is caregiver of. Patient is currently subtherapeutic on her medications. Clinician notes the patient does have a history of being noncompliant with her medications. Her mental health medications have been restarted. Patient is currently not responding to internal stimuli however is noted to have had manic episodes with psychotic features in the past. Patient will be reevaluated. Dr. Staton was consulted and the care and management of this patient; attending physician is in agreement with recommendations and disposition.
[2018-03-16] MEDS ORDERED: LITHIUM CARBONATE 300 MG CAPSULE PO ONE (11:48)
[2018-03-16] MEDS ORDERED: BENZTROPINE MESYLATE 1 MG TABLET PO ONE (11:52)
[2018-03-16] MEDS ORDERED: OLANZAPINE 5 MG TAB.RAPDIS PO ONE (11:52)
[2018-03-16 15:00] LABS: APPEARANCE,URINE CLEAR; BILIRUBIN,URINE NEGATIVE (NEGATIVE); COLOR,URINE YELLOW; GLUCOSE, URINE NEGATIVE (NEGATIVE); KETONES,URINE NEGATIVE (NEGATIVE); LEUKOCYTE ESTERASE,URINE NEGATIVE (NEGATIVE); NITRITE,URINE NEGATIVE (NEGATIVE); PROTEIN,URINE NEGATIVE (NEGATIVE); URINE SPECIFIC GRAVITY 1.005; UROBILINOGEN,URINE NEGATIVE mg/dL (<2.0)
[2018-03-16 15:17] LABS: URINE AMPHETAMINES SCREEN NEGATIVE; URINE BARBITURATES SCREEN NEGATIVE; URINE BENZODIAZEPINES SCREEN NEGATIVE; URINE COCAINE SCREEN NEGATIVE; URINE MARIJUANA (THC) SCREEN NEGATIVE; URINE METHADONE SCREEN NEGATIVE; URINE PHENCYCLIDINE SCREEN NEGATIVE
--- NOTE | 2018-03-16 15:59 | ER Document Report ---
ED General - General TRAVEL OUTSIDE OF THE [place] IN LAST 30 DAYS: No - HPI Patient complains to provider of: Psych evaluation - Related Data Home Medications: congentin 1 mg daily, zyprexia 2.5mg q12 hours, lithium 300mg bid-These were medications that she was on but has not taken since before September. <KEMAR SHARMA - Last Filed: 03/16/18 15:56> <ANGELITO ASIF - Last Filed: 03/17/18 19:22> - General Chief Complaint: Medical Clearance Stated Complaint: PSYCH EVAL Time Seen by Provider: 03/16/18 10:05 - HPI Notes: Patient coming in for psychiatric evaluation. Patient states she has not taken her medication for months due to the fact that she does not swallow her medications. Patient states she has difficult time swallowing. There is a family friend at bedside states that patient has never seen a GI specialist. Patient also has been getting in frequent arguments with her 88-year-old mother. Apparently please been called multiple times to the patient's residence. Patient upon my evaluation is standing calm cooperative denies any fevers chills nausea vomiting diarrhea chest pain abdominal pain. (KEMAR SHARMA) - Related Data Allergies/Adverse Reactions: No Known Allergies Allergy (Verified 03/16/18 09:35) Past Medical History - Social History Smoking Status: Unknown if Ever Smoked Chew tobacco use (# tins/day): No Frequency of alcohol use: None Drug Abuse: None Family History: Hypertension Patient has suicidal ideation: No Patient has homicidal ideation: No - wants to hurt mom at times Neurological Medical History: Denies: Hx Seizures Renal/ Medical History: Denies: Hx Peritoneal Dialysis Psychiatric Medical History: Reports: Hx Bipolar Disorder Past Surgical History: Reports: Hx Gynecologic Surgery - D&C, Hx Tonsillectomy. Denies: Hx Hysterectomy - Immunizations Hx Diphtheria, Pertussis, Tetanus Vaccination: Yes <KEMAR SHARMA - Last Filed: 03/16/18 15:56> Review of Systems - Review of Systems Constitutional: No symptoms reported EENT: No symptoms reported Cardiovascular: No symptoms reported Respiratory: No symptoms reported Gastrointestinal: No symptoms reported Genitourinary: No symptoms reported Female Genitourinary: No symptoms reported Musculoskeletal: No symptoms reported Skin: No symptoms reported Hematologic/Lymphatic: No symptoms reported Neurological/Psychological: Other - Possible aggressive behavior -: Yes All other systems reviewed and negative <KEMAR SHARMA - Last Filed: 03/16/18 15:56> Physical Exam - Vital signs Interpretation: Normal - General General appearance: Appears well, Alert - HEENT Head: Normocephalic, Atraumatic Eyes: Normal Pupils: PERRL - Respiratory Respiratory status: No respiratory distress Chest status: Nontender Breath sounds: Normal Chest palpation: Normal - Cardiovascular Rhythm: Regular Heart sounds: Normal auscultation Murmur: No - Abdominal Inspection: Normal Distension: No distension Bowel sounds: Normal Tenderness: Nontender Organomegaly: No organomegaly - Back Back: Normal, Nontender - Extremities General upper extremity: Normal inspection, Nontender, Normal color, Normal ROM , Normal temperature General lower extremity: Normal inspection, Nontender, Normal color, Normal ROM , Normal temperature, Normal weight bearing. No: Kvng's sign - Neurological Neuro grossly intact: Yes Cognition: Normal Orientation: AAOx4 Hilary Coma Scale Eye Opening: Spontaneous [place] Coma Scale Verbal: Oriented [place] Coma Scale Motor: Obeys Commands Hilary Coma Scale Total: 15 Speech: Normal Motor strength normal: LUE, RUE, LLE, RLE Sensory: Normal - Psychological Associated symptoms: Flat affect - Skin Skin Temperature: Warm Skin Moisture: Dry Skin Color: Normal <KEMAR SHARMA - Last Filed: 03/16/18 15:56> - Vital signs Vitals: Temp Pulse Resp BP Pulse Ox 98.4 F 75 16 135/71 H 99 03/16/18 09:34 03/16/18 09:34 03/16/18 09:34 03/16/18 09:34 03/16/18 09:34 Course - Laboratory Result Diagrams: 03/16/18 10:24 03/16/18 10:24 <KEMAR SHARMA - Last Filed: 03/16/18 15:56> - Laboratory Result Diagrams: 03/16/18 10:24 03/16/18 10:24 <ANGELITO ASIF - Last Filed: 03/17/18 19:22> - Re-evaluation Re-evalutation: 03/16/18 15:58 Patient was able to take her medication in applesauce. I did order the patient' s home medications to be given daily. At this time patient is medically cleared for further evaluation. (KEMAR SHARMA) - Vital Signs Vital signs: Temp Pulse Resp BP Pulse Ox 98.4 F 56 L 16 153/67 H 100 03/17/18 19:14 03/17/18 19:14 03/17/18 19:14 03/17/18 19:14 03/17/18 19:14 - Laboratory Laboratory results interpreted by me: 03/16/18 03/16/18 10:24 10:24 Seg Neutrophils % 80.0 H Lymphocytes % 10.4 L Salicylates < 1.0 L Acetaminophen < 10 L [place] < 0.2 L Discharge <KEMAR SHARMA - Last Filed: 03/16/18 15:56> <ANGELITO ASIF - Last Filed: 03/17/18 19:22> - Discharge Clinical Impression: Bipolar 1 disorder, manic, moderate, Noncompliance with medications Condition: Good Disposition: PSYCH HOSP/UNIT
[2018-03-16] MEDS ORDERED: BENZTROPINE MESYLATE 1 MG TABLET PO SCH (16:00)
[2018-03-16] MEDS ORDERED: LITHIUM CARBONATE 300 MG CAPSULE PO SCH (16:00)
[2018-03-16] MEDS ORDERED: OLANZAPINE 5 MG TAB.RAPDIS PO SCH (16:00)
--- NOTE | 2018-03-17 09:56 | ER Document Report ---
Doctor's Note Notes: 03/17/18 09:55 This is a 67-year-old female with a history of bipolar affective disorder brought in by police/EMS after she was threatening her mother (whom she lives with and takes care of). Patient's labs and vital signs have been stable. She is currently waiting psychiatric evaluation. Will continue current medical regimen (lithium, Zyprexa and Cogentin). Patient is calm and alert on physical exam. She does appear to have little insight into why she is here. 03/17/18 09:57 03/17/18 19:21 I discussed case with the derrick worker well service and patient is reported at the baseline. The plan is for discharge home with outpatient follow-up.
[2018-03-17] MEDS: OLANZAPINE 5 MG TAB.RAPDIS PO SCH (10:01)
[2018-03-17] MEDS: BENZTROPINE MESYLATE 1 MG TABLET PO SCH (10:02)
[2018-03-17] MEDS: LITHIUM CARBONATE 300 MG CAPSULE PO SCH (10:02)
--- NOTE | 2018-03-17 16:54 | PSYCHOLOGICAL NOTE ---
Psych Note - Psych Note Psych Note: Reason for evaluation: Re-eval Contact Permissions: Patient's niece Florecita Dupont; patient's Department of Washer Repairman worker Philippe Patient's brother ethan Rojas [phone] Patient is a 67-year-old female. Patient reports her mother fell downstairs and hit her head and has bruising on the side of her head. Patient reports that she needs to take care of her mother but cannot take care of herself. Patient reports she is in jeopardy of losing everything including her home because they are having financial problems. Patient reports she needs to get her mind right. Patient reports that she wishes she was in [place] but states she would not be able to get there because her mother is very sick. Patient reports her mother has pancreatic cancer and has an oncologist appointment today. Patient reports her mother has been alone for 2 days and has not been fed and is unable to take care of herself because she is 88 years old. Patient reports she wants mental health to talk to her brother Ethan Graham phone #[phone]. Patient reports her mother is lost and is in danger. Patient reports that she thinks her mother is with strangers or maybe not. Patient reports she cannot remember if her mother is with neighbors or just alone and fell and is hurt. Patient reports Philippe from [facility] has been talking to her about [place] [facility], finances, and Medicare. Patient reports patient's mother was in [facility] 5 years ago but was discharged after 4 months because her mom was talking erratically and could not tolerate oxycodone. Patient reports she feels the same today and nothing has gotten better. Patient reports she took her medication in applesauce and took another one that dissolved on her tongue. Patient reports she was not taking her meds because she was having trouble with it getting caught in her throat. Patient stated "I have so much to do". Collateral information: Patient's sr. social media & mobile manager Philippe Clinician coordinated with patient's of adult protective services worker Philippe. Philippe stated he checked in with patient's mother and patient's mother was with neighbors/friends at her oncologist appointment and that it was not true that patient's mother was lost and in danger. Philippe stated they closed the investigation because patient's mother had neighbors who were providing care to patient and checking and regularly with patient's elderly mother. Medications recommendations per [facility]'s contracted psychiatrist, Dr. Jay Jay MD are as follows 1. continue lithium 300 mg at night for mood stabilization 2. continue Zyprexa Zydis 2.5 mg twice per day for mood stabilization and psychosis 3. continue Cogentin 1mg daily to prevent side effects of Zyprexa Retrieved from Jair's note Behavioral Health Team Notes: Patient's level of lithium will never be therapeutic level taking only 300 mg nightly; however, she is also taking Zyprexa to assist with her mental health symptoms. Diagnosis 296.44 (F31.2) Bipolar 1 disorder, most current episode manic with psychotic features. Impression/plan: Recommendation to maintain involuntary commitment due to patient meeting criteria [place] GS 122C. Clinician observed patient has a history of schizophrenia was not taking her prescribed medications, and experiencing psychosis as evidenced by responding to internal stimuli . Clinician observed patient is currently endorsing delusions (e.g. things getting stuck in her throat and staying there). Clinician observed patient is a poor historian and is having difficulty remembering things (e.g. whether or not her mother is safe , stating her mother is lost). Mental health to reassess at a later time. Attending physician in agreement with plan and disposition. Consulted with Dr. Staton regarding the management and care of patient.
--- NOTE | 2018-03-18 08:59 | PSYCHOLOGICAL NOTE ---
Psych Note - Psych Note Psych Note: Reason for evaluation: Re-eval Contact Permissions: Patient's niece Florecita Dupont; patient's Department of Manager Clinical Applications worker Philippe Patient's brother mercedez Rojas [phone] Patient is a 67-year-old female. Patient reports she is doing terrible because her mother has . Patient reports she is afraid because she feels the hospital is going to drive her out into the [place] and leave her there. Clinician explained her mother was alive as of yesterday, patient then explained while she will not be much longer because the neighbors who were with her " are scammers who are taking all of her money". Patient reports she does not have a Social Security card or identification card. Patient reports the neighbor took her off of her own bank account so she does not have access to a bank account. Patient reports she cannot leave the area because she needs to be here for one her mother dies from the "scammers". Patient reports "they" want to hurt her, and trick her, leave her on the side of the road to without her ID or money. Patient reports that someone is going to set her house on fire and she is going to have to kick down the door to get in there. Medications recommendations per [facility]'s contracted psychiatrist, Dr. Jay Jay MD are as follows 1. continue lithium 300 mg at night for mood stabilization 2. continue Zyprexa Zydis 2.5 mg twice per day for mood stabilization and psychosis 3. continue Cogentin 1mg daily to prevent side effects of Zyprexa Diagnosis 296.44 (F31.2) Bipolar 1 disorder, most current episode manic with psychotic features. Impression/Plan: Recommendation to maintain involuntary commitment due to patient meeting criteria [place] GS 122C. Patient is still experiencing psychosis and paranoid delusions. Based on comprehensive chart review and information gathered from collateral ( in past visits) patient has taken action on her paranoid delusions to include chasing down people ( e.g. run them over with her car) she believes were targeting her to harm her. Clinician observed patient is still fixated on her mistrust of people ( e.g. feeling the neighbors are going to kill her mother). Clinician observed patient displays circumstantial speech, and memory problems as evidenced by repeatedly ask the same question after it has already been answered. Today Patient is currently fixated on the idea that her mother has ( she is alive). Patient has been accepted into a geriatric psychiatric unit, and will be transferred today. Attending physician in agreement with plan and disposition. Consulted with Dr. Staton regarding the management and care of patient.
[2018-03-18] MEDS: BENZTROPINE MESYLATE 1 MG TABLET PO SCH (10:12)
[2018-03-18] MEDS: LITHIUM CARBONATE 300 MG CAPSULE PO SCH (10:12)
[2018-03-18] MEDS: OLANZAPINE 5 MG TAB.RAPDIS PO SCH (10:12)
--- NOTE | 2018-03-18 10:14 | ER Document Report ---
Doctor's Note Notes: 67-year-old female. Patient has been accepted for transport to geriatric mental health facility. Will continue with current care. Vital signs reviewed. Patient stable for transport at this time.
[2018-03-18 12:10] VITALS: BP 130/80
== END 2018-03-18 12:00 ==
LOC: ER 09:30
DX: F31.2 Bipolar disorder, current episode manic severe with psychotic features (principal)
CPT/HCPCS: 93005; 99285; 36415; 80307 ×4; 80178; 85025; 80053; 81001; 93010; A9270 ×6; J3490 ×3

== ENCOUNTER → 2018-08-02 | Outpatient (CLI) | payer MEDICARE, OTHER ==
[2018-08-02 08:57] LABS: ABSOLUTE EOSINOPHILS # (AUTO) 0.1 10^3/uL (0.0-0.6); ABSOLUTE MONOCYTES (AUTO) 0.5 10^3/uL (0.1-1.4); ABSOLUTE NEUT (AUTO) 3.9 10^3/uL (1.7-8.2); BASOPHILS % (AUTO) 0.8 % (0-2); EOSINOPHILS % (AUTO) 1.7 % (0-6); HEMATOCRIT 34.3 % (36.0-47.0); HEMOGLOBIN 11.7 g/dL (12.0-15.5); LYMPHOCYTES % (AUTO) 17.7 % (13-45); MEAN CORPUSCULAR HEMOGLOBIN 31.7 pg (27.0-33.4); MEAN CORPUSCULAR HGB CONC 34.1 g/dL (32.0-36.0); MEAN CORPUSCULAR VOLUME 93 fl (80-97); MONOCYTES % (AUTO) 9.5 % (3-13); PLATELET COUNT 337 10^3/uL (150-450); RED BLOOD COUNT 3.69 10^6/uL (3.72-5.28); RED CELL DISTRIBUTION WIDTH 13.2 % (11.5-14.0); SEGMENTED NEUTROPHILS % (AUTO) 70.3 % (42-78); TOTAL CELLS COUNTED % (AUTO) 100 %; WHITE BLOOD COUNT 5.5 10^3/uL (4.0-10.5)
[2018-08-02 09:23] LABS: ALANINE AMINOTRANSFERASE 33 U/L (9-52); ALBUMIN 4.1 g/dL (3.5-5.0); ALKALINE PHOSPHATASE 73 U/L (38-126); ANION GAP 6 (5-19); ASPARTATE AMINO TRANSFERASE 21 U/L (14-36); BILIRUBIN,DIRECT 0.2 mg/dL (0.0-0.4); BILIRUBIN,TOTAL 0.6 mg/dL (0.2-1.3); BLOOD UREA NITROGEN 13 mg/dL (7-20); CALCIUM 9.7 mg/dL (8.4-10.2); CARBON DIOXIDE 29 mmol/L (22-30); CHLORIDE 109 mmol/L (98-107); GLUCOSE 101 mg/dL (75-110); LITHIUM 0.4 mEq/L (0.6-1.2); POTASSIUM 4.2 mmol/L (3.6-5.0); SODIUM 144.2 mmol/L (137-145); TOTAL PROTEIN 6.8 g/dL (6.3-8.2)
[2018-08-02 09:38] LABS: FREE T4 (FREE THYROXINE) 1.22 ng/dL (0.78-2.19)
[2018-08-02 09:52] LABS: THYROID STIMULATING HORMONE 1.52 uIU/mL (0.47-4.68)
== END ==
LOC: OD 08:15
PROVIDERS: ATTEND Physician Assistant
DX: F31.73 Bipolar disorder, in partial remission, most recent episode manic (principal); Z79.899 Other long term (current) drug therapy
CPT/HCPCS: 36415; 80053; 80178; 84439; 84443; 85025

== ENCOUNTER → 2020-03-08 | Outpatient (CLI) | payer MEDICARE, OTHER ==
[2020-03-08 08:43] LABS: ANION GAP 8 (5-19); BLOOD UREA NITROGEN 17 mg/dL (7-20); CALCIUM 9.9 mg/dL (8.4-10.2); CARBON DIOXIDE 29 mmol/L (22-30); CHLORIDE 103 mmol/L (98-107); GLUCOSE 104 mg/dL (75-110); LITHIUM 0.3 mEq/L (0.6-1.2); POTASSIUM 4.5 mmol/L (3.6-5.0)
== END ==
LOC: OD 07:04
PROVIDERS: ATTEND Nurse Practitioner Psychiatric/Mental Health
DX: F31.73 Bipolar disorder, in partial remission, most recent episode manic (principal); Z79.899 Other long term (current) drug therapy
CPT/HCPCS: 36415; 80048; 80178; 84436; 84443